=== PATIENT | female | born 1990 | race African-American/Black ===

== ENCOUNTER 2018-01-23 08:19 | Outpatient (CLI) | payer OTHER ==
[2018-01-23] MEDS ORDERED: LACTATED RINGERS 500 ML IV ONE (09:08)
[2018-01-23] MEDS ORDERED: LACTATED RINGERS 1,000 ML IV ONE (09:19)
[2018-01-23] MEDS ORDERED: SODIUM CHLORIDE FLUSH 0.9% 10 ML SYRINGE ONE (09:20)
[2018-01-23 09:21] LABS: BILIRUBIN,URINE NEGATIVE (NEGATIVE); GLUCOSE, URINE (UA) NEGATIVE (NEGATIVE); KETONES,URINE (UA) NEGATIVE (NEGATIVE); LEUKOCYTE ESTERASE, URINE NEGATIVE (NEGATIVE); NITRITE,URINE NEGATIVE (NEGATIVE); OCCULT BLOOD,URINE NEGATIVE (NEGATIVE); PH,URINE 6.5 PH (5.0-7.5); PROTEIN,URINE NEGATIVE (NEGATIVE); UROBILINOGEN,URINE 0.2 (NORMAL) E.U./dL (NORMAL)
[2018-01-23 09:23] LABS: BASOPHILS % (AUTO) 0.4 %; EOSINOPHILS % (AUTO) 0.1 %; HGB - HEMOGLOBIN 10.5 g/dL (12.0-16.0); LYMPHOCYTES # (AUTO) 1.3 10^3/uL (1.5-3.5); LYMPHOCYTES % (AUTO) 14.9 %; MEAN CORPUSCULAR HEMOGLOBIN 30.3 pg (27.0-31.0); MEAN CORPUSCULAR VOLUME 86.4 fL (81.0-99.0); MEAN PLATELET VOLUME 7.7 fL (7.9-10.8); MONOCYTES # (AUTO) 0.5 10^3/uL (0.0-1.0); MONOCYTES % (AUTO) 6.1 %; NEUTROPHILS # (AUTO) 6.6 10^3/uL (1.5-6.6); NEUTROPHILS % (AUTO) 78.5 %; PLT - PLATELET COUNT 277 10^3/uL (130-450); RED BLOOD COUNT 3.48 10^6/uL (4.20-5.40); RED CELL DISTRIBUTION WIDTH 13.3 % (12.0-15.0); WHITE BLOOD COUNT 8.4 x10^3/uL (4.8-10.8)
[2018-01-23 09:28] LABS: CLARITY,URINE CLEAR (CLEAR); RBC,URINE None Seen /HPF (0-5); SQUAMOUS EPITHELIAL CELL,UR MOD Squamous (<= Few)
[2018-01-23 09:29] LABS: BACTERIA,URINE Few /HPF (None Seen)
[2018-01-23 09:35] LABS: CALCIUM 8.5 mg/dL (8.5-10.3); CREATININE 0.6 mg/dL (0.4-1.0)
[2018-01-23 12:27] VITALS: BP 124/70
--- NOTE | 2018-01-23 16:10 | HISTORY & PHYSICAL EXAMINATION ---
DATE OF SERVICE: 01/23/2018 Physician: Odell Gibbs MD PATIENT IDENTIFICATION: Patient is a 27-year-old G1, P0, female whose EDC is 27 April 2018; this makes her 26.6 weeks. She is a patient of [facility]. She has received her OB care from there. CHIEF COMPLAINT: Nausea, vomiting, diarrhea. HISTORY OF PRESENT ILLNESS: Patient states she ate a tuna sandwich got about a third of it down, at which time she felt as though it was a bad sandwich. She developed nausea, vomiting, as well as diarrhea. She has continued to have this up until this morning. She is complaining of feeling poorly, nauseated. She still notes good motion. Her OB course has been unremarkable during this , with the exception of some morning/all day sickness during the early parts of her . She also has some sciatica. PAST MEDICAL HISTORY: Patient denies any hypertensive, diabetic, cardiac, or pulmonary disease. PAST SURGICAL HISTORY: None. ALLERGIES: NONE KNOWN. CURRENT MEDICATIONS: vitamins. HABITS: Patient denies use of alcohol, tobacco, street or addictive drugs. SOCIAL HISTORY: Patient is a dependent to an active duty [employer]. PHYSICAL EXAMINATION HEENT: Pupils are equal and round. Extraocular muscles are intact. Mouth: Mucous membranes are somewhat dry. HEART: Regular rate and rhythm. LUNGS: Lung kasper are clear without rales or wheezes. BACK: No spinal or CVA tenderness. ABDOMEN: Soft non tender with normal Bowel sounds. Uterus is gravid, nontender. She is not developing any contractions. She shows a normal baseline heart rate at this time. LABORATORIES: Electrolytes show a mild hyponatremia at 134, BUN is also low at 5. Her CBC is normal with the exception of a mild anemia of 10.5, hematocrit 31.1, platelets are 277. Her urinalysis is negative for ketones at this time, shows moderate squamous cells, WBCs are 0-3, RBCs are none. ASSESSMENT AND PLAN: A 27-year-old G1, P0 female who is currently 26.6 weeks with food poisoning. This appears to be transient at this time. We will administer IV fluids. I will allow the patient to restart eating. Will also recommend the patient start taking iron. She may follow up in the clinic at [facility] TD: 01/23/2018 10:53 MTDD
== END 2018-01-23 12:10 | disposition home or self-care (01) ==
LOC: WFO 08:19 → FBP 08:21 → WFO 12:10
PROVIDERS: ATTEND Obstetrics & Gynecology
DX: O9A.212 Injury, poisoning and certain other consequences of external causes complicating pregnancy, second trimester (principal); T61.771A Other fish poisoning, accidental (unintentional), initial encounter; R11.2 Nausea with vomiting, unspecified; R19.7 Diarrhea, unspecified; O99.282 Endocrine, nutritional and metabolic diseases complicating pregnancy, second trimester; E87.1 Hypo-osmolality and hyponatremia; O99.012 Anemia complicating pregnancy, second trimester; D64.9 Anemia, unspecified; Z3A.26 26 weeks gestation of pregnancy
CPT/HCPCS: 36415; 80048; 81001; 85025; 99213; J7120; 87086

== ENCOUNTER 2018-02-16 08:00 | Outpatient (CLI) | payer OTHER ==
[2018-02-16 15:10] LABS: MUDS CUTOFF CONCENTRATIONS CUTOFF CONC BELOW:
[2018-02-16 15:31] LABS: AMPHETAMINE SCREEN,URINE NEGATIVE (NEGATIVE); BENZODIAZEPINES SCREEN, URINE NEGATIVE (NEGATIVE); COCAINE SCREEN URINE NEGATIVE (NEGATIVE); METHADONE SCREEN, URINE NEGATIVE (NEGATIVE); METHAMPHETAMINES SCREEN, URINE NEGATIVE (NEGATIVE); OPIATE SCREEN, URINE NEGATIVE (NEGATIVE); OXYCODONE SCREEN, URINE NEGATIVE (NEGATIVE); PROPOXYPHENE SCREEN, URINE NEGATIVE (NEGATIVE); TRICYCLIC ANTIDEPRESSANT,URINE NEGATIVE (NEGATIVE)
== END 2018-02-16 08:01 | disposition home or self-care (01) ==
LOC: LAB.R 08:00
PROVIDERS: ATTEND Obstetrics & Gynecology
DX: Z36.9 Encounter for antenatal screening, unspecified (principal)
CPT/HCPCS: 80306

== ENCOUNTER 2018-03-05 17:20 | Outpatient (CLI) | payer OTHER ==
[2018-03-05 18:30] VITALS: BP 115/72
== END 2018-03-05 18:20 | disposition home or self-care (01) ==
LOC: WFO 17:20 → FBP 17:22 → WFO 18:20
PROVIDERS: ATTEND Obstetrics & Gynecology
DX: O36.8130 Decreased fetal movements, third trimester, not applicable or unspecified (principal); Z3A.32 32 weeks gestation of pregnancy
CPT/HCPCS: 59025

== ENCOUNTER 2018-03-22 16:32 | Outpatient (CLI) | payer OTHER ==
[2018-03-22 17:01] LABS: BASOPHILS % (AUTO) 0.6 %; EOSINOPHILS % (AUTO) 0.1 %; HGB - HEMOGLOBIN 10.9 g/dL (12.0-16.0); LYMPHOCYTES # (AUTO) 1.6 10^3/uL (1.5-3.5); LYMPHOCYTES % (AUTO) 19.7 %; MEAN CORPUSCULAR HEMOGLOBIN 28.4 pg (27.0-31.0); MEAN CORPUSCULAR VOLUME 86.1 fL (81.0-99.0); MEAN PLATELET VOLUME 8.8 fL (7.9-10.8); MONOCYTES # (AUTO) 0.5 10^3/uL (0.0-1.0); MONOCYTES % (AUTO) 6.4 %; NEUTROPHILS % (AUTO) 73.2 %; PLT - PLATELET COUNT 248 10^3/uL (130-450); RED BLOOD COUNT 3.84 10^6/uL (4.20-5.40); RED CELL DISTRIBUTION WIDTH 13.3 % (12.0-15.0); WHITE BLOOD COUNT 8.2 x10^3/uL (4.8-10.8)
[2018-03-22 17:12] LABS: PLATELET ESTIMATE, MANUAL NORMAL (130-450,000) (NORMAL); PLATELET MORPHOLOGY NORMAL APPEARANCE (NORMAL); RBC MORPHOLOGY (MULTIPLE) NORMAL APPEARANCE (NORMAL)
== END 2018-03-22 16:33 | disposition home or self-care (01) ==
LOC: LAB 16:32
PROVIDERS: ATTEND Obstetrics & Gynecology
DX: D50.9 Iron deficiency anemia, unspecified (principal)
CPT/HCPCS: 36415; 85025

== ENCOUNTER 2018-03-29 08:00 | Outpatient (CLI) | payer OTHER | END 2018-03-29 23:59 | disposition home or self-care (01) | LOC: LAB.R 08:00 | PROVIDERS: ATTEND Nurse Practitioner Obstetrics & Gynecology | DX: Z36.85 Encounter for antenatal screening for Streptococcus B (principal) | CPT/HCPCS: 87070 ==

== ENCOUNTER 2018-03-29 15:07 | Outpatient (CLI) | payer OTHER ==
[2018-03-29 17:04] LABS: BASOPHILS % (AUTO) 0.2 %; EOSINOPHILS % (AUTO) 0.2 %; HGB - HEMOGLOBIN 10.8 g/dL (12.0-16.0); LYMPHOCYTES # (AUTO) 1.6 10^3/uL (1.5-3.5); LYMPHOCYTES % (AUTO) 19.8 %; MEAN CORPUSCULAR HEMOGLOBIN 28.1 pg (27.0-31.0); MEAN CORPUSCULAR HGB CONC 32.2 g/dL (32.0-36.0); MEAN PLATELET VOLUME 9.5 fL (7.9-10.8); MONOCYTES # (AUTO) 0.6 10^3/uL (0.0-1.0); MONOCYTES % (AUTO) 7.3 %; NEUTROPHILS # (AUTO) 5.7 10^3/uL (1.5-6.6); NEUTROPHILS % (AUTO) 72.5 %; PLT - PLATELET COUNT 235 10^3/uL (130-450); RED BLOOD COUNT 3.84 10^6/uL (4.20-5.40); RED CELL DISTRIBUTION WIDTH 13.2 % (12.0-15.0); WHITE BLOOD COUNT 7.9 x10^3/uL (4.8-10.8)
== END 2018-03-29 15:08 | disposition home or self-care (01) ==
LOC: LAB 15:07
PROVIDERS: ATTEND Obstetrics & Gynecology
DX: D50.9 Iron deficiency anemia, unspecified (principal); Z36.89 Encounter for other specified antenatal screening
CPT/HCPCS: 36415; 82728; 85025; 86850; 87070

== ENCOUNTER 2018-04-05 08:00 | Outpatient (CLI) | payer OTHER | END 2018-04-05 08:01 | disposition home or self-care (01) | LOC: LAB.R 08:00 | PROVIDERS: ATTEND Nurse Practitioner Obstetrics & Gynecology | DX: Z36.85 Encounter for antenatal screening for Streptococcus B (principal); Z11.3 Encounter for screening for infections with a predominantly sexual mode of transmission | CPT/HCPCS: 87081; 87491; 87591 ==

== ENCOUNTER 2018-04-05 15:11 | Outpatient (CLI) | payer OTHER ==
[2018-04-06 13:36] LABS: HEPATITIS C ANTIBODY NON-REACTIVE (NON-REACTIVE)
[2018-04-06 15:06] LABS: HIV AG/AB 4TH GEN NON-REACTIVE (NON-REACTIVE)
[2018-04-07 10:16] LABS: HSV 1 IGG TYPE SPECIFIC AB <0.90 index; HSV 2 IGG TYPE SPECIFIC AB <0.90 index
== END 2018-04-05 15:12 | disposition home or self-care (01) ==
LOC: LAB 15:11
PROVIDERS: ATTEND Nurse Practitioner Obstetrics & Gynecology
DX: Z36.85 Encounter for antenatal screening for Streptococcus B (principal); Z11.3 Encounter for screening for infections with a predominantly sexual mode of transmission
CPT/HCPCS: 36415; 81599; 86592; 86695; 86696; 86803; 87081; 87389; 87491; 87591

== ENCOUNTER 2018-04-16 10:33 | Outpatient (CLI) | payer OTHER ==
[2018-04-16 10:54] LABS: BILIRUBIN,URINE NEGATIVE (NEGATIVE); GLUCOSE, URINE (UA) NEGATIVE (NEGATIVE); KETONES,URINE (UA) NEGATIVE (NEGATIVE); LEUKOCYTE ESTERASE, URINE NEGATIVE (NEGATIVE); NITRITE,URINE NEGATIVE (NEGATIVE); OCCULT BLOOD,URINE NEGATIVE (NEGATIVE); PH,URINE 6.5 PH (5.0-7.5); PROTEIN,URINE NEGATIVE (NEGATIVE); UROBILINOGEN,URINE 0.2 (NORMAL) E.U./dL (NORMAL)
[2018-04-16 11:04] LABS: CREATININE,URINE 179.5 mg/dL; PROTEIN/CREATININE RATIO,URINE 0.1 (<=0.2)
[2018-04-16 11:05] LABS: ALBUMIN 2.9 g/dL (3.2-5.5); ALBUMIN/GLOBULIN RATIO 0.8 (1.0-2.2); BILIRUBIN,TOTAL 0.4 mg/dL (0.2-1.0); CALCIUM 8.8 mg/dL (8.5-10.3); CREATININE 0.7 mg/dL (0.4-1.0); TOTAL PROTEIN 6.7 g/dL (6.7-8.2); URIC ACID 4.4 mg/dL (2.6-7.2)
[2018-04-16 11:06] LABS: BACTERIA,URINE Few /HPF (None Seen); CLARITY,URINE CLEAR (CLEAR); RBC,URINE None Seen /HPF (0-5); SQUAMOUS EPITHELIAL CELL,UR MOD Squamous (<= Few)
== END 2018-04-16 10:34 | disposition home or self-care (01) ==
LOC: LAB 10:33
PROVIDERS: ATTEND Nurse Practitioner Obstetrics & Gynecology
DX: R03.0 Elevated blood-pressure reading, without diagnosis of hypertension (principal)
CPT/HCPCS: 36415; 80053; 81001; 82570; 83615; 84156; 84550; 87086

== ENCOUNTER 2018-04-16 17:35 | Outpatient (CLI) | payer OTHER ==
[2018-04-16 19:22] VITALS: BP 141/97
== END 2018-04-16 18:50 | disposition home or self-care (01) ==
LOC: WFO 17:35 → FBP 17:37 → WFO 18:50
PROVIDERS: ATTEND Registered Nurse
DX: O13.3 Gestational [pregnancy-induced] hypertension without significant proteinuria, third trimester (principal); Z3A.38 38 weeks gestation of pregnancy
CPT/HCPCS: 36415; 59025; 80053; 81001; 82570; 83615; 84156; 84550; 99212

== ENCOUNTER 2018-04-16 23:09 | Inpatient (IN) | payer OTHER ==
[2018-04-17] MEDS ORDERED: PENICILLIN G POTASSIUM 5,000,000 UNIT in SODIUM CHLORIDE 0.9% MINIBAG 100 ML IV ONE (01:30)
[2018-04-17] MEDS ORDERED: ONDANSETRON 4 MG/2 ML VIAL IVP PRN ×2 (01:30→20:45)
[2018-04-17] MEDS ORDERED: fentaNYL 100 MCG/2 ML VIAL IVP PRN (01:30)
[2018-04-17 02:39] LABS: CREATININE,URINE 183.3 mg/dL; PROTEIN/CREATININE RATIO,URINE 0.2 (<=0.2)
[2018-04-17] MEDS ORDERED: OXYTOCIN/SODIUM CHLORIDE 500 ML IV SCH (03:00)
[2018-04-17 03:20] LABS: BASOPHILS % (AUTO) 0.2 %; EOSINOPHILS % (AUTO) 0.2 %; HGB - HEMOGLOBIN 10.5 g/dL (12.0-16.0); LYMPHOCYTES # (AUTO) 1.8 10^3/uL (1.5-3.5); LYMPHOCYTES % (AUTO) 23.6 %; MEAN CORPUSCULAR HEMOGLOBIN 28.3 pg (27.0-31.0); MEAN CORPUSCULAR HGB CONC 32.7 g/dL (32.0-36.0); MEAN CORPUSCULAR VOLUME 86.5 fL (81.0-99.0); MONOCYTES # (AUTO) 0.6 10^3/uL (0.0-1.0); MONOCYTES % (AUTO) 8.1 %; NEUTROPHILS # (AUTO) 5.1 10^3/uL (1.5-6.6); NEUTROPHILS % (AUTO) 67.9 %; PLT - PLATELET COUNT 187 10^3/uL (130-450); RED BLOOD COUNT 3.73 10^6/uL (4.20-5.40); RED CELL DISTRIBUTION WIDTH 13.8 % (12.0-15.0); WHITE BLOOD COUNT 7.6 x10^3/uL (4.8-10.8)
[2018-04-17 03:28] LABS: URIC ACID 4.4 mg/dL (2.6-7.2)
[2018-04-17] MEDS: SODIUM CHLORIDE FLUSH 0.9% 10 ML SYRINGE IVP PRN ×2 (04:24→17:24)
[2018-04-17] MEDS: miSOPROStol 100 MCG TABLET BC SCH ×3 (05:15→20:18)
--- NOTE | 2018-04-17 10:39 | HISTORY & PHYSICAL EXAMINATION ---
Admit History - Visit Reason Visit Reason: Other (induction of labor for gestational HTN) - : 1 Parity: 0 Premature: 0 Ectopic: 0 : 0 Risk/History: positive: None Complications This : positive: induced HTN Smoking Status: Never smoker - Mother's Labs Mother's Blood Type: positive: O Mother's RH: positive: Positive GBS: positive: Group B Strep Positive Rubella Status: positive: Immune Meds/Allgy - Allergies Allergies/Adverse Reactions: Allergies Allergy/AdvReac Type Severity Reaction Status Date / Time No Known Drug Allergies Allergy Verified 01/23/18 09:08 Review of Systems - Constitutional Constitutional: reports: Fatigue. denies: Fever, Chills - Eyes Eyes: denies: Blurred vision, Spots in vision, Dipolpia - Cardiovascular Cariovascular: denies: Irregular heart rate, Palpitations, Chest pain, Edema - Respiratory Respiratory: denies: Cough, Wheezing, SOB at rest, SOB with exertion - Gastrointestinal Gastrointestinal: denies: Abdominal pain, Constipation, Diarrhea, Nausea, Vomiting, Reflux/heartburn - Genitourinary Genitourinary: denies: Dysuria, Frequency, Urgency - Musculoskeletal Musculoskeletal: denies: Muscle pain, Back pain, Muscle aches - Integumentary Integumentary: denies: Rash, Pruritis, Lesions - Neurological Neurological: denies: General weakness, Focal weakness, Headache - Psychiatric Psychiatric: reports: Anxiety. denies: Depression - All Other Systems All Other Systems: reports: Reviewed and negative Physical - Abdominal Exam Vital Signs: Temp Pulse Resp BP Pulse Ox 37.0 C 86 18 131/80 H 04/16/18 23:27 04/17/18 01:00 04/17/18 01:00 04/17/18 01:00 Contraction Frequency (min/apart): 3-5 minutes Contraction Intensity: positive: Mild Uterine Resting Tone: positive: Soft - Monitoring Heart Rate Baseline: 135 Strip Review: positive: Category I - Presentation Presentation: positive: Vertex - Vaginal Exam Membranes: positive: Membranes intact Dilation (in cm): 1 Effacement (%): 75 Station: positive: 0 Cervical Position: positive: Anterior - Speculum Exam Speculum Exam Performed: positive: No Findings: negative: Gross leak - Other Notes Labor Progress Note/Additional Text: Samantha Quick is a 27 y/o @ 38w4d by early first trimester US who presents for induction of labor for gestational HTN identified this week w/o s/sx PET @ this time. She has been counseled extensively regarding pathophysiology of GHTN & implications as well as induction of labor & modalities & PARQ has been held for misoprostol IOL in the setting of unfavorable cervical status. Informed consent was reviewed & obtained. Her has been otherwise complicated only by her positive GBS screening, some mild anxiety & mild anemia w/ consequent iron supplementation. PMH: unremarkable PSH: tooth extraction 2008, uncomplicated Obhx: primiparous GYNhx: denies hx of STI, normal paps SocHx: to charles, denies DV; good social support; denies etoh/drugs/tobacco Famhx: HTN, diabetes PE: GEN: AAOX3, NAD WA gravid female HEENT: grossly normocephalic, atraumatic, corrective lenses RESP: cta b/l t/o CARDIAC: RRR nls1s2, no murmur ABD: gravid, NT, EFW 8#, lie longitudinal, presentation cephalic : no lesion, sve deferred for now, was /0 @ 0500 OB: EFM bl 135bpm, +accels, no decels, mod pina, TOCO: UCs q3-5 min, palp soft MS: FROM t/o, no edema, no erythema, no deformity NEURO: No focal deficit, +2 DTRs, no clonus SKIN: warm, well-perfused, c/d/i, no lesion PSYCH: Moderate anxiety, otherwise normal mood & affect, pleasantly conversant, accompanied by Charles Plan for Labor - Plan For Labor I expect patient to be DC'd or transferred within 96 hours.: Yes Plan for Labor: 1. Admit to inpatient 2. PET labs q 12 hours 3. BP evaluation minimum q2 hours 4. Misoprostol 50mcg BC q 4 hrs 5. PCN for IPAP per protocol w/ onset of active labor or ROM 6. Reviewed pain management options @ length, ok for NO2, IV opioids, epidural, hydrotherapy per pt request 7. Will initiate antihypertensive therapy for persistent BP elevations, MgSo4 if develops evidence of pre-eclampsia 8. Reassess cervical status only w/ clear clinical indication 9. Reviewed plan of care w/ pt, partner, RN @ bedside & Dr. Odell Correa MD, back-up PATIENT INTAKE REPRESENTATIVE: all in agreement, without concerns.
[2018-04-17 17:15] LABS: HGB - HEMOGLOBIN 11.6 g/dL (12.0-16.0); MEAN CORPUSCULAR HEMOGLOBIN 28.2 pg (27.0-31.0); MEAN CORPUSCULAR HGB CONC 32.9 g/dL (32.0-36.0); MEAN CORPUSCULAR VOLUME 85.6 fL (81.0-99.0); MEAN PLATELET VOLUME 9.7 fL (7.9-10.8); RED BLOOD COUNT 4.11 10^6/uL (4.20-5.40)
[2018-04-17 17:37] LABS: ALT ALANINE AMINOTRANSFERASE 32 IU/L (10-60); AST ASPARTATE AMINOTRANSFERASE 36 IU/L (10-42)
[2018-04-17 17:39] LABS: PROTEIN/CREATININE RATIO,URINE 0.3 (<=0.2)
[2018-04-17] MEDS: LACTATED RINGERS 1,000 ML IV SCH ×2 (19:15→20:57)
[2018-04-17] MEDS: ACETAMINOPHEN 500 MG TABLET PO PRN (19:42)
[2018-04-17] MEDS ORDERED: fent/BUPIV 2 MCG/0.125% 250 ML EP ONE (19:58)
[2018-04-17] MEDS ORDERED: NALOXONE 0.4 MG/ML VIAL IVP PRN (20:45)
[2018-04-17] MEDS ORDERED: METOCLOPRAMIDE 10 MG/2 ML VIAL IVP PRN (20:45)
[2018-04-17] MEDS ORDERED: NALBUPHINE 10 MG/ML AMP IVP PRN (20:45)
[2018-04-17] MEDS ORDERED: diphenhydrAMINE INJ 50 MG/ML VIAL IVP PRN (20:45)
[2018-04-17] MEDS ORDERED: ePHEDrine 50 MG/ML VIAL IVP PRN (20:45)
[2018-04-17] MEDS ORDERED: LACTATED RINGERS 500 ML IV SCH (20:45)
--- NOTE | 2018-04-17 20:50 | ANESTHESIA ---
Pre-Anesthesia VS, & Labs - Diagnosis Active labor - Procedure Continuous labor epidural Vital Signs: Temp Pulse Resp BP Pulse Ox 37.0 C 86 18 131/80 H 04/16/18 23:27 04/17/18 01:00 04/17/18 01:00 04/17/18 01:00 Height 5 ft 4 in Weight (kg) 84.368 kg Body Mass Index 29.9 - NPO Other (has been snacking) - Is Patient ?: Yes - Lab Results Current Lab Results: Laboratory Tests 04/17/18 17:06: AST 36, ALT 32 04/17/18 17:06: WBC 9.0, RBC 4.11 L, Hgb 11.6 L, Hct 35.2 L, MCV 85.6, MCH 28.2, MCHC 32.9, RDW 14.0, Plt Count 201, MPV 9.7 04/17/18 02:48: WBC 7.6, RBC 3.73 L, Hgb 10.5 L, Hct 32.2 L, MCV 86.5, MCH 28.3, MCHC 32.7, RDW 13.8, Plt Count 187, MPV 10.0, Neut # (Auto) 5.1, Lymph # (Auto) 1.8, [place] # (Auto) 0.6, Eos # (Auto) 0.0, Baso # (Auto) 0.0, Absolute Nucleated RBC 0.00, Nucleated RBC % 0.0 04/17/18 02:48: Uric Acid 4.4, AST 29 04/17/18 02:48: Lactate Dehydrogenase 151 Fish Bones: 04/17/18 17:06 Home Medications and Allergies Active Medications Acetaminophen (Tylenol) 1,000 mg PO Q6HR PRN PRN Reason: Pain or Fever > 38C (100.4F) Last Admin: 04/17/18 19:42 Dose: 1,000 mg Diphenhydramine HCl (Benadryl Inj) 12.5 - 25 mg IVP Q6HR PRN PRN Reason: ITCHING Ephedrine Sulfate () 5 mg IVP Q5M PRN PRN Reason: For SBP<100;give until SBP>100 Fentanyl (Fentanyl) 50 mcg IVP Q1H PRN PRN Reason: PAIN Lactated Ringer's (Lr) 1,000 mls @ 100 mls/hr IV .Q10H [facility] Last Admin: 04/17/18 19:15 Dose: 100 mls/hr Oxytocin/Sodium Chloride (Pitocin/Sodium Chloride) 500 mls @ 1 mls/hr IV TITR ONOFRE; Protocol Penicillin G Potassium 2,500, (000 unit/ Sodium Chloride) 100 mls @ 200 mls/hr IV Q4H ONOFRE Lactated Ringer's (Lr) 500 mls @ 999 mls/hr IV ONCE ONE Stop: 04/17/18 21:15 Metoclopramide HCl (Reglan Inj) 10 mg IVP Q6HR PRN PRN Reason: Nausea / Vomiting Misoprostol (Cytotec) 50 mcg BC Q4HR [facility] Last Admin: 04/17/18 20:18 Dose: Not Given Nalbuphine HCl (Nubain) 2.5 - 5 mg IVP Q4H PRN PRN Reason: ITCHING Naloxone HCl (Narcan) 0.1 mg IVP Q2M PRN PRN Reason: RR<8 Ondansetron HCl (Zofran Inj) 4 mg IVP Q4HR PRN PRN Reason: Nausea / Vomiting Ondansetron HCl (Zofran Inj) 4 mg IVP Q6HR PRN PRN Reason: Nausea / Vomiting Sodium Chloride (Normal Saline Flush 0.9%) 10 ml IVP PRN PRN PRN Reason: NEEDED PER PROVIDER ORDERS Last Admin: 04/17/18 17:24 Dose: 10 ml Allergies/Adverse Reactions: Allergies Allergy/AdvReac Type Severity Reaction Status Date / Time No Known Drug Allergies Allergy Verified 01/23/18 09:08 Anes History & Medical History - Anesthetic History Anesthesia Complications: reports: No previous complications Family history of Anesthesia Complications: Denies Family history of Malignant Hyperthermia: Denies - Medical History Cardiovascular: reports: Hypertension (With ) Pulmonary: reports: None Gastrointestinal: reports: None Urinary: reports: None Neuro: reports: None Musculoskeletal: reports: None Endocrine/Autoimmune: reports: None Blood Disorders: reports: None Skin: reports: None Smoking Status: Never smoker Psychosocial: reports: No issues indicated - Surgical History Eyes Ears Nose Throat (EENT): Other (Third molars) - Obstetrical History : 1 Parity: 0 Events: positive: None Complications: positive: induced HTN Exam General: Alert, Oriented x3, Cooperative Dental: WNL Mouth Opening: Greater than 4 Fingerbreadths Neck Mobility: Normal Mallampati classification: II Plan Anesthesia Type: Epidural Consent for Procedure(s) Verified and Reviewed: Yes Code Status: Attempt Resuscitation ASA classification: 2-Mild systemic disease Is this case an emergency?: Yes
--- NOTE | 2018-04-17 22:48 | PROVIDER PROGRESS NOTE ---
Labor Progress Note - Uterine Monitoring Uterine Monitoring Mode: positive: External toco Contraction Frequency (min/apart): 2-3 Contraction Intensity: positive: Moderate Uterine Resting Tone: positive: Soft - Monitoring Monitor Mode: positive: External ultrasound Heart Rate Baseline: 150 Heart Rate Variability: positive: Moderate (6-25 bmp) Accelerations: positive: Present, 15x15 Decelerations: positive: Late (occasional, non-repetitive, to madonna in 100s w/ spontaneous return to baseline <30 seconds), Variable (occasional yo nsfit in 100s w/ spontaneous return to baseline <60 seconds) Strip Review: positive: Category II (without evidence of acidemia) - Vaginal Exam Dilation (in cm): 4 Effacement (%): 70 Station: 0 Cervical Position: Anterior - Labor Progress Note Labor Progress Note/Additional Text: S: Samantha is comfortable w/ her epidural in place. Charles is at the bedside & is involved & supportive. O: AAOx3, NAD WA gravid female VSS: BPs decreased immediately s/p epidural placement, now back to 130s/80s, maternal HR 100-120 EFM: BL 150bpm, +accels, variable & late decelerations, occasional & non- repetitive, to madonna in 100s w/ spontaneous return to baseline <60 seconds TOCO: UCs q2-3 minutes SVE: /0 AROM for bloody amniotic fluid, IUPC placed, baseline 0mmHg, peak 10mmHg, contractions now evident q 2-4 minutes, MVU < 100, FSE placed w/o incident, position ROP A: 27 y/o @ 38w4d by first trimester US, induction of labor for non-severe pre-eclampsia Pre-eclampsia by BP critera, proteinuria LFTs/CBC stable favorable cervical status s/p 2 doses buccal misoprostol FHTs cat II, w/o evidence of acidemia Adequtate pain control w/ epidural anesthesia No severe-range blood pressures GBS Pos, AROM for bloody amniotic fluid malposition P: 1. Begin Pitocin infusion & titrate per MVU to adequate labor pattern by IUPC 2. Begin PCN for IPAP per protocol 3. Continue q 12 hour PET labs & careful BP monitoring w/ initiation of antihypertensive therapy & magnesium sulfate for severe-range BPs 4. Reassess cervical status 2 hours s/p establishment of adequate labor pattern by IUPC, earlier PRN 5. Reviewed plan of care w/ pt, partner, RN @ bedside, & Dr. Odell Correa MD, back-up DRY MILL WORKER; all in agreement, without concerns.
--- NOTE | 2018-04-17 23:04 | PROVIDER PROGRESS NOTE ---
Labor Progress Note - Uterine Monitoring Uterine Monitoring Mode: positive: External toco Contraction Frequency (min/apart): 2-3 Contraction Intensity: positive: Mild to moderate Uterine Resting Tone: positive: Soft - Monitoring Monitor Mode: positive: External ultrasound Heart Rate Baseline: 140 Heart Rate Variability: positive: Moderate (6-25 bmp) Accelerations: positive: Present, 15x15 Decelerations: positive: None Strip Review: positive: Category I - Vaginal Exam Dilation (in cm): deferred - Labor Progress Note Labor Progress Note/Additional Text: S: Samantha is using N2O & hydrotherapy w/ good effect for pain management; declines IV analgesia or anesthesia @ this time O: AAOx3, NAD WA gravid female VSS BPs 130s-80s EFM: BL 135bpm, + accels, no decels, mod pina TOCO: UCs q2-3 min, moderate SVE deferred secondary to no indication A: 27 y/o @ 38w4d, induction of labor for gestational hypertension, no s/sx severe PET Cervical ripening w/ misoprostol 50mcg buccally x2 doses IBOW, GBS pos, no active labor FHTs cat I Adequate pain control w/o analgesia/anesthesia P: 1. Continue buccal misoprostol q 4 hours 2. Initiate IPAP w/ IV PCN per protocol w/ ROM or active labor 3. Analgesia/anesthesia PRN per pt request 4. PET labs @ 1700
--- NOTE | 2018-04-17 23:12 | PROVIDER PROGRESS NOTE ---
Labor Progress Note - Uterine Monitoring Uterine Monitoring Mode: positive: External toco Contraction Frequency (min/apart): 2-3 Contraction Intensity: positive: Mild to moderate Uterine Resting Tone: positive: Soft - Monitoring Monitor Mode: positive: External ultrasound Heart Rate Baseline: 140 Heart Rate Variability: positive: Moderate (6-25 bmp) Accelerations: positive: Present, 15x15 Decelerations: positive: None Strip Review: positive: Category I - Vaginal Exam Dilation (in cm): deferred - Labor Progress Note Labor Progress Note/Additional Text: S: Samantha is coping well w/ use of hydrotherapy, states contractions are more intense & uncomfortable O: AAOx3, NAD WA gravid female VSS: BPs 130s/90s EFM: BL 140bpm, +accels, no decels, mod pina Medulla: UCs q 2-3 min SVE: deferred secondary to no indication A: 27 y/o @ 38w4d by first trimester US, misoprostol IOL for GHTN No s/sx severe PET No severe range BPs FHTs cat I s/p 2 doses misoprostol w/ regular uterine contractions & subjective increase in intensity Adequate pain control w/o analgesia/anesthesia GBS Pos w/ IBOW, no active labor P: 1. Continue buccal misoprostol w/ decrease in contraction activity 2. Reassess cervical status w/ clear clinical indication 3. IPAP w/ IV PCN w/ ROM or active labor 4. Analgesia/anesthesia PRN per pt request
[2018-04-17] MEDS ORDERED: CITRIC ACID/SODIUM CITRATE 15 ML UDC PO ONE (23:18)
[2018-04-17] MEDS ORDERED: ceFAZolin 3 GM in SODIUM CHLORIDE 0.9% 100ML 100 ML IV ONE (23:19)
--- NOTE | 2018-04-17 23:20 | PROVIDER PROGRESS NOTE ---
Labor Progress Note - Uterine Monitoring Uterine Monitoring Mode: positive: IUPC Contraction Frequency (min/apart): q 3-6 min Contraction Intensity: positive: Moderate Uterine Resting Tone: positive: Soft - Monitoring Monitor Mode: positive: Spiral electrode Heart Rate Baseline: 160 Heart Rate Variability: positive: Moderate (6-25 bmp) Accelerations: positive: Absent Decelerations: positive: Late, Recurrent (>50% x20 min) Strip Review: positive: Category II - Vaginal Exam Dilation (in cm): 4 Effacement (%): 70 Station: 0 Cervical Position: Anterior - Labor Progress Note Labor Progress Note/Additional Text: S: Samantha is comfortable w/ her epidural in place O: AAOx3, NAD WA gravid female VSS: BPs 130s/80s EFM by FSE: BL 160bpm, no accels, + recurrent late decelerations to madonna in 140s w/ spont return to baseline <60 seconds, occasional variable decelerations to madonna in 90s w/ spontaneous return to baseline <60 seconds, mod variability IUPC: BL 0mmHg, peak 15mmHg, occurring q 3-6 minutes x60 seconds, MVU <100 SVE: unchanged, ongoing leakage of copious bloody amniotic fluid A: 27 y/o @ 38w4d, misoprostol induction of labor for pre-eclampsia, no evidence of severe pre-eclampsia Normal LFTs/CBC, TP/CR 0.3 s/p 2 doses buccal misoprostol, last @ 0900, favorable cervical status @ present, inadequate contraction pattern GBS positive, AROM for bloody amniotic fluid @ 2230, for a total ruptured duration of 45 minutes, afebrile, GBS pos, PCN loading dose infusing FHTs cat II, concerning for repetitive late decelerations w/o accelerations Adequate pain control w/ epidural anesthesia Bloody amniotic fluid P: 1. Requested Dr. Odell Correa MD, evaluate patient given status & poor labor progress, will require augmentation to effect delivery & pt remains remote from delivery 2. Anticipate primary LTCS; hold Pitocin augmentation
[2018-04-17] MEDS ORDERED: TERBUTALINE 1 MG/ML VIAL SUBQ ONE (23:23)
[2018-04-17] MEDS ORDERED: LACTATED RINGERS 1,000 ML IV ONE (23:43)
[2018-04-17] MEDS ORDERED: OXYTOCIN 10 UNIT/ML VIAL IV ONE (23:55)
[2018-04-17] MEDS ORDERED: LIDOCAINE-MPF 2% 5 ML VIAL IM ONE (23:55)
[2018-04-17] MEDS ORDERED: ONDANSETRON 4 MG/2 ML VIAL IVP ONE (23:55)
[2018-04-17] MEDS ORDERED: MIDAZOLAM 2 MG/2 ML VIAL IVP ONE (23:55)
[2018-04-17] MEDS ORDERED: KETOROLAC 30 MG/ML VIAL IVP ONE (23:55)
[2018-04-17] MEDS ORDERED: MORPHINE PF 5 MG/10 ML AMP EP ONE (23:55)
[2018-04-17] MEDS ORDERED: ePHEDrine 50 MG/ML VIAL IVP ONE (23:55)
[2018-04-17] MEDS ORDERED: SODIUM CHLORIDE 0.9% 10 ML VIAL IV ONE (23:55)
--- NOTE | 2018-04-18 00:41 | OPERATIVE REPORT ---
Operative Report - General Admit Date: 04/17/18 Planned Procedure: Primary section Pre-Op Diagnosis: Suspected abruption; category 3 EFM tracing changes; GHTN Procedure Performed: Primary lower segment transverse section; urgent Post Op Diagnosis: Placental abruption 15-20% of placenta; Grade 3; same as above - Procedure Note Primary Surgeon: Odell Correa MD, FACOG, FICS Secondary Surgeon: Bo Mcdowell, certified nurse unemployment examiner, advanced nurse practitioner Anesthesia Provider: Martio Araujo; certified nurse furniture mechanic Anesthesia Technique: Epidural Pathology: Cord blood and cord gases sent IV Fluids (mL): 900 Estimated Blood Loss (mL): 450 Urine Output (mL): 120 Drain/Tube Type: Other (Almaraz catheter) Complications: None - Other Other Information/Narrative: TECHNIQUE Mrs. Quick is a 27-year-old -Turkish primigravida at 38 weeks who is being induced for gestational hypertension and was suspected to have a abruption in evolution. Bo Doe CNM asked me to review EFM tracing due to series of variable decelerations some possibly late. Patient had an IUPC with scalp lead. Baseline was 160, minimal variability, multiple variable decelerations with a notable prolonged variable deceleration that lasted for 2 minutes down to the 90s. I performs scalp stimulation and the fetus did not respond. Uterus had increased tone and tenderness. IUPC had fresh blood within the catheter and significant bloody discharge per vagina. Patient was complaining of pain despite epidural. Based on physical exam and tracing changes a partial abruption was suspected. Cervix was only dilated to 4 cm and delivery was remote. section was recommended. At 2312 hrs. decision for urgent was made and the boathouse keeper alerted who began calling in crew anesthesia impedes. Patient was given 36 cc of Bicitra, SCD boots were placed, Almaraz was already in place as well as epidural. We had an informed consent consent session patient signed. Patient was brought to the OR expeditiously. Patient's epidural was dosed with lidocaine. Patient was placed on the OR table in the supine position. She was prepped and draped in a customary sterile fashion. Brief timeout session was done. Anesthesia was confirmed through the level of T10. The abdomen was uneventfully opened with a Pfannenstiel incision. position was assessed by palpation. A curvilinear hysterotomy was carved with scalpel. The amniotic fluid was clear on entry. Hysterotomy wound was expanded with gentle finger traction. Caustic Preparer secured head with his right hand and guided it through the hysterotomy incision. With the aid of fundal pressure from the assistant pastry chef, atraumatic delivery of the head was accomplished and shoulder shortly thereafter. Cord was doubly clamped transected. Cord blood and cord gases were sent. Elementary Substitute Teacher handed to the over to the awaiting pediatrics team. Uterus was exteriorized and inspected. There were no myometrial or intracavitary defects. The hysterotomy was closed in 2 layers; first a interlocking layer of 0 Vicryl followed by a imbricating layer of 0 Vicryl in a cardinal stitch. We chose not to close the bladder flap and the myometrium was hemostatically secure. The abdomen was lavaged with warm normal saline. The uterus was placed back in the abdomen atraumatically. All operative sites were inspected to ensure hemostatic security. The peritoneum was closed with a running stitch of 2-0 Vicryl. A single tacking stitch of 2-0 Vicryl brought the rectus muscles together in the midline. Fascia was closed with a running stitch of 0 Vicryl. Subcutaneous space closure was done with interrupted stitches of 2-0 chromic. Skin was closed with 4-0 Monocryl with a subcuticular stitch. Wound VAC was then uneventfully placed. Due to the rapidity of the execution of surgery opening count was not completed. Flat plate of the abdomen and pelvis showed no needle sponges or instruments left behind. Patient was somewhat anxious Versed was used to calm her. She left the OR in stable condition. Intraoperative medications: Ancef 2 g IV piggyback, Toradol 30 mg, and Versed. FINDINGS 1. Living male weighing 6 pounds 5 ounces and scoring Apgars of 7/9. Arterial cord pH 7.173, base excess -4.2. Venous cord pH 7.203, base excess - 7.5. Clear fluid. 2. Placenta delivered intact with three-vessel cord. Cord entanglement was noted: Nuchal cord x1 & Bandolier cord. Placenta was found to have blood clot over 15-20% of the fundal surface area, consistent with abruption 3. Tubes and ovaries were completely normal in appearance with decidual reaction on tubes. There was some evidence of adhesive disease in the lower quadrant but no evidence of active PID was found. Myometrium was normal with no evidence of septum or fibroids.
--- NOTE | 2018-04-18 00:56 | XRAY Report ---
Reason: NO INST COUNT DONE Procedure Date: 04/18/2018 Accession Number: [id number] / [id number] Procedure: XR - Abdomen 1 View X-Ray CPT Code: 41862 FULL RESULT: EXAM: ABDOMEN RADIOGRAPHY EXAM DATE: 04/18/2018 12:42 AM. CLINICAL HISTORY: No instrument count done. COMPARISON: None. TECHNIQUE: 1 view. FINDINGS: Bowel Gas Pattern: Enlarged uterus pushing bowel loops superiorly. Multiple gas distended small bowel loops are seen. Nonobstructive nonspecific bowel gas pattern. Spinal catheter is seen. No retained surgical instruments or sponges are seen. IMPRESSION: No retained surgical instruments or sponges are seen. See above. These findings were reported to Nurse Chauhan on 04/18/2018 at 12:55 AM. [facility]
[2018-04-18] MEDS ORDERED: diphenhydrAMINE 25 MG CAPSULE PO PRN (01:00)
[2018-04-18] MEDS ORDERED: LACTATED RINGERS 1,000 ML IV SCH (01:00)
[2018-04-18] MEDS ORDERED: SODIUM CHLORIDE FLUSH 0.9% 10 ML SYRINGE IVP PRN (01:00)
[2018-04-18] MEDS ORDERED: LACTATED RINGERS 1,000 ML IV ONE (01:15)
[2018-04-18] MEDS: miSOPROStol 100 MCG TABLET BC SCH ×2 (01:58→02:02)
[2018-04-18] MEDS: PENICILLIN G POTASSIUM 2,500,000 UNIT in SODIUM CHLORIDE 0.9% 100ML 100 ML IV SCH ×5 (02:00→03:04)
[2018-04-18] MEDS: SODIUM CHLORIDE FLUSH 0.9% 10 ML SYRINGE IVP SCH (02:04)
[2018-04-18] MEDS: OXYTOCIN/SODIUM CHLORIDE 500 ML IV SCH (02:06)
[2018-04-18] MEDS: ACETAMINOPHEN 500 MG TABLET PO PRN ×4 (03:30→22:45)
[2018-04-18] MEDS: oxyCODONE 5 MG TABLET PO PRN ×5 (03:30→21:16)
[2018-04-18 08:08] LABS: BILIRUBIN,URINE NEGATIVE (NEGATIVE); GLUCOSE, URINE (UA) NEGATIVE (NEGATIVE); KETONES,URINE (UA) NEGATIVE (NEGATIVE); LEUKOCYTE ESTERASE, URINE TRACE (NEGATIVE); NITRITE,URINE NEGATIVE (NEGATIVE); OCCULT BLOOD,URINE LARGE (NEGATIVE); PH,URINE 6.5 PH (5.0-7.5); PROTEIN,URINE NEGATIVE (NEGATIVE); UROBILINOGEN,URINE 1 (NORMAL) E.U./dL (NORMAL)
[2018-04-18 08:09] LABS: CLARITY,URINE CLOUDY (CLEAR)
[2018-04-18 08:10] LABS: BACTERIA,URINE Rare /HPF (None Seen); RBC,URINE TNTC /HPF (0-5); SQUAMOUS EPITHELIAL CELL,UR RARE Squamous (<= Few)
[2018-04-18 08:36] LABS: CREATININE,URINE 97.6 mg/dL; PROTEIN/CREATININE RATIO,URINE 0.2 (<=0.2)
[2018-04-18] MEDS: CALCIUM CARBONATE CHEW 500 MG TABLET PO SCH ×2 (09:45→21:16)
[2018-04-18] MEDS: SIMETHICONE CHEW 80 MG TABLET PO SCH ×3 (09:46→19:26)
--- NOTE | 2018-04-18 10:12 | PROVIDER PROGRESS NOTE ---
Subjective - General Admit Date: 04/17/18 Procedure Date: 04/17/18 Post Op Days: 1 Procedure Performed: Emergent primary section - Review of Systems Wound/Incisions: positive: Other (Wound VAC functional) Drain Type: Almaraz catheter Drain Output Description: Clear General: positive: No symptoms HEENT: positive: No symptoms Pulmonary: positive: No symptoms Cardiovascular: positive: No symptoms Gastrointestinal: positive: No symptoms, Flatus Genitourinary: positive: Other (Mild lochia) Musculoskeletal: positive: No symptoms Skin: positive: No symptoms Psychiatric: positive: No symptoms All Other Systems: positive: Reviewed and negative Objective - Patient Data Vital Signs: Vital Signs x48h Temp Pulse Resp BP Pulse Ox 04/18/18 08:00 98.2 F 84 16 100 04/18/18 03:00 98.4 F 80 18 137/85 H 04/18/18 02:45 69 18 154/82 H 04/18/18 02:30 75 16 141/82 H 04/18/18 02:15 94 18 126/88 H Weight: Weight 04/16/18 04/17/18 04/18/18 23:59 23:59 23:59 Weight (kg) 84.368 kg 84.368 kg Intake & Output: Intake and Output Totals x24h 04/16/18 04/17/18 04/18/18 23:59 23:59 23:59 Intake Total 1770 600 Output Total 150 850 Balance 1620 -250 - Lab Results Lab Results: 04/17/18 17:06 Other Lab Results: Lab Results x24hrs 04/18/18 04/18/18 04/17/18 Range/Units 07:25 07:25 17:06 WBC (4.8-10.8) x10^3/uL RBC (4.20-5.40) 10^6/uL Hgb (12.0-16.0) g/dL Hct (37.0-47.0) % MCV (81.0-99.0) fL MCH (27.0-31.0) pg MCHC (32.0-36.0) g/dL RDW (12.0-15.0) % Plt Count (130-450) 10^3/uL MPV (7.9-10.8) fL AST 36 (10-42) IU/L ALT 32 (10-60) IU/L Urine Color YELLOW Urine Clarity CLOUDY (CLEAR) Urine pH 6.5 (5.0-7.5) PH Ur Specific Angie 1.015 (1.002-1.030) Urine Protein NEGATIVE (NEGATIVE) mg/dL Urine Glucose (UA) NEGATIVE (NEGATIVE) mg/dL Urine Ketones NEGATIVE (NEGATIVE) mg/dL Urine Occult Blood LARGE H (NEGATIVE) Urine Nitrite NEGATIVE (NEGATIVE) Urine Bilirubin NEGATIVE (NEGATIVE) Urine Urobilinogen 1 (NORMAL) (NORMAL) E.U./dL Ur Leukocyte Esterase TRACE H (NEGATIVE) Urine RBC TNTC H (0-5) /HPF Urine WBC >25 H (0-5) /HPF Ur Squamous Epith Cells RARE Squamous (<= Few) Urine Bacteria Rare (None Seen) /HPF Ur Microscopic Review INDICATED Urine Creatinine 97.6 mg/dL Ur Total Protein Timed 18 mg/dL Protein/Creatinin Ratio 0.2 (<=0.2) Blood Type Antibody Screen 04/17/18 04/17/18 04/16/18 Range/Units 17:06 16:40 02:48 WBC 9.0 (4.8-10.8) x10^3/uL RBC 4.11 L (4.20-5.40) 10^6/uL Hgb 11.6 L (12.0-16.0) g/dL Hct 35.2 L (37.0-47.0) % MCV 85.6 (81.0-99.0) fL MCH 28.2 (27.0-31.0) pg MCHC 32.9 (32.0-36.0) g/dL RDW 14.0 (12.0-15.0) % Plt Count 201 (130-450) 10^3/uL MPV 9.7 (7.9-10.8) fL AST (10-42) IU/L ALT (10-60) IU/L Urine Color Urine Clarity (CLEAR) Urine pH (5.0-7.5) PH Ur Specific [place]ie (1.002-1.030) Urine Protein (NEGATIVE) mg/dL Urine Glucose (UA) (NEGATIVE) mg/dL Urine Ketones (NEGATIVE) mg/dL Urine Occult Blood (NEGATIVE) Urine Nitrite (NEGATIVE) Urine Bilirubin (NEGATIVE) Urine Urobilinogen (NORMAL) E.U./dL Ur Leukocyte Esterase (NEGATIVE) Urine RBC (0-5) /HPF Urine WBC (0-5) /HPF Ur Squamous Epith Cells (<= Few) Urine Bacteria (None Seen) /HPF Ur Microscopic Review Urine Creatinine 46.0 mg/dL Ur Total Protein Timed 16 mg/dL Protein/Creatinin Ratio 0.3 H (<=0.2) Blood Type O POSITIVE Antibody Screen NEGATIVE - Current Medications Current Medications: Current Medications Generic Name Dose Route Start Last Admin Trade Name Freq PRN Reason Stop Dose Admin Acetaminophen 1,000 mg 04/17/18 18:20 04/18/18 09:46 Tylenol PO 1,000 mg Q6HR PRN Administration Pain or Fever > 38C (100.4F) Calcium Carbonate/Glycine 500 mg 04/18/18 09:00 04/18/18 09:45 Tums PO 500 mg BID ONOFRE Administration Fentanyl 50 mcg 04/17/18 01:30 04/18/18 01:26 Fentanyl IVP 50 mcg Q1H PRN Administration PAIN Lactated Ringer's 1,000 mls @ 100 mls/hr 04/17/18 02:00 04/17/18 20:57 Lr IV 100 mls/hr .Q10H ONOFRE Administration Penicillin G Potassium 2,500, 100 mls @ 200 mls/hr 04/17/18 06:00 04/18/18 03:04 000 unit/ Sodium Chloride IV Not Given Q4H ONOFRE Oxytocin/Sodium Chloride 500 mls @ 1 mls/hr 04/17/18 23:00 04/18/18 02:06 Pitocin/Sodium Chloride IV Not Given TITR [facility] Protocol 1 MILLIUNIT/MIN Misoprostol 50 mcg 04/17/18 05:00 04/18/18 02:02 Cytotec BC Not Given Q4HR ONOFRE Oxycodone HCl 5 mg 04/18/18 01:00 04/18/18 07:59 Roxicodone PO 5 mg Q4HR PRN Administration PAIN Simethicone 80 mg 04/18/18 06:00 04/18/18 09:46 Mylicon PO 80 mg TID ONOFRE Administration Sodium Chloride 10 ml 04/17/18 01:30 04/17/18 17:24 Normal Saline Flush 0.9% IVP 10 ml PRN PRN Administration NEEDED PER PROVIDER ORDERS Sodium Chloride 10 ml 04/18/18 01:00 04/18/18 02:04 Normal Saline Flush 0.9% IVP Not Given 0100,0900,1700 ONOFRE Physical Exam - Physical Exam General: positive: No acute distress, Alert HEENT: positive: Moist mucous membranes Neck: positive: Supple w/out meningeal sx Cardiac: positive: Regular Rate, Regular Rhythm Resipratory: positive: Clear to ausultation rashmi Abdomen: positive: Normal Bowel sounds, Other (No inappropriate tenderness) Female : positive: Enlarged uterus (17-16-week size firm nontender) Extremities: positive: Normal ROM, No pedal edema Skin: positive: Warm and dry Neurologic: positive: Alert and Oriented X 3, Normal motor/no weakness, Normal Sensation, Normal Speech Assessment/Plan - Assessment/Plan Assessment: Patient doing well after urgent last night at midnight. Will DC Almaraz soon and increase activity. No evidence of ongoing bleeding. Vital signs stable. Plan: * Continue supportive care and monitor for complications secondary to gestational hypertension. * Await morning labs
[2018-04-18] MEDS: IBUPROFEN 600 MG TABLET PO SCH ×2 (11:57→19:26)
[2018-04-18] MEDS: LABETALOL 100 MG TABLET PO SCH ×2 (11:58→21:16)
[2018-04-18 12:01] LABS: BASOPHILS % (AUTO) 0.4 %; EOSINOPHILS % (AUTO) 0.2 %; HGB - HEMOGLOBIN 8.9 g/dL (12.0-16.0); LYMPHOCYTES # (AUTO) 1.3 10^3/uL (1.5-3.5); LYMPHOCYTES % (AUTO) 16.7 %; MEAN CORPUSCULAR HEMOGLOBIN 28.8 pg (27.0-31.0); MEAN CORPUSCULAR VOLUME 84.7 fL (81.0-99.0); MEAN PLATELET VOLUME 9.6 fL (7.9-10.8); MONOCYTES # (AUTO) 0.5 10^3/uL (0.0-1.0); NEUTROPHILS # (AUTO) 6.1 10^3/uL (1.5-6.6); NEUTROPHILS % (AUTO) 76.7 %; PLT - PLATELET COUNT 156 10^3/uL (130-450); RED BLOOD COUNT 3.09 10^6/uL (4.20-5.40); RED CELL DISTRIBUTION WIDTH 13.7 % (12.0-15.0)
[2018-04-18 12:13] LABS: ALBUMIN 2.3 g/dL (3.2-5.5); ALBUMIN/GLOBULIN RATIO 0.8 (1.0-2.2); BILIRUBIN,TOTAL 0.5 mg/dL (0.2-1.0); CALCIUM 7.8 mg/dL (8.5-10.3); CREATININE 0.7 mg/dL (0.4-1.0); TOTAL PROTEIN 5.2 g/dL (6.7-8.2)
[2018-04-19] MEDS: PENICILLIN G POTASSIUM 2,500,000 UNIT in SODIUM CHLORIDE 0.9% 100ML 100 ML IV SCH ×4 (00:53→00:57)
[2018-04-19] MEDS: miSOPROStol 100 MCG TABLET BC SCH ×4 (00:53→00:57)
[2018-04-19] MEDS: SODIUM CHLORIDE FLUSH 0.9% 10 ML SYRINGE IVP SCH ×3 (00:53→01:26)
[2018-04-19] MEDS: OXYTOCIN/SODIUM CHLORIDE 500 ML IV SCH (00:54)
[2018-04-19] MEDS: LACTATED RINGERS 1,000 ML IV SCH ×3 (00:55→05:39)
[2018-04-19] MEDS: IBUPROFEN 600 MG TABLET PO SCH ×3 (01:26→19:06)
[2018-04-19] MEDS: oxyCODONE 5 MG TABLET PO PRN ×2 (05:38→21:51)
[2018-04-19] MEDS: ACETAMINOPHEN 500 MG TABLET PO PRN (05:39)
[2018-04-19 06:54] LABS: BASOPHILS % (AUTO) 0.4 %; EOSINOPHILS % (AUTO) 0.3 %; HGB - HEMOGLOBIN 8.6 g/dL (12.0-16.0); LYMPHOCYTES # (AUTO) 1.6 10^3/uL (1.5-3.5); LYMPHOCYTES % (AUTO) 16.3 %; MEAN CORPUSCULAR HEMOGLOBIN 28.6 pg (27.0-31.0); MEAN CORPUSCULAR HGB CONC 32.6 g/dL (32.0-36.0); MEAN CORPUSCULAR VOLUME 87.6 fL (81.0-99.0); MEAN PLATELET VOLUME 9.5 fL (7.9-10.8); MONOCYTES # (AUTO) 0.6 10^3/uL (0.0-1.0); MONOCYTES % (AUTO) 6.2 %; NEUTROPHILS # (AUTO) 7.8 10^3/uL (1.5-6.6); NEUTROPHILS % (AUTO) 76.8 %; PLT - PLATELET COUNT 179 10^3/uL (130-450); RED BLOOD COUNT 3.01 10^6/uL (4.20-5.40); RED CELL DISTRIBUTION WIDTH 14.1 % (12.0-15.0); WHITE BLOOD COUNT 10.1 x10^3/uL (4.8-10.8)
--- NOTE | 2018-04-19 06:57 | PROVIDER PROGRESS NOTE ---
Subjective - General Admit Date: 04/17/18 Procedure Date: 04/17/18 Post Op Days: 2 Procedure Performed: Emergent primary section - Review of Systems Wound/Incisions: positive: Healing well (Wound VAC functional), Other (Wound VAC functional) General: positive: No symptoms HEENT: positive: No symptoms Pulmonary: positive: No symptoms Cardiovascular: positive: No symptoms Gastrointestinal: positive: No symptoms, Flatus Genitourinary: positive: Other (Mild lochia) Musculoskeletal: positive: No symptoms Skin: positive: No symptoms Psychiatric: positive: No symptoms All Other Systems: positive: Reviewed and negative Objective - Patient Data Vital Signs: Vital Signs x48h Temp Pulse Resp BP Pulse Ox 04/19/18 05:45 98.2 F 84 16 120/72 99 04/19/18 00:48 98.8 F 72 16 124/83 H 100 Weight: Weight 04/17/18 04/18/18 04/19/18 23:59 23:59 23:59 Weight (kg) 84.368 kg Intake & Output: Intake and Output Totals x24h 04/17/18 04/18/18 04/19/18 23:59 23:59 23:59 Intake Total 1770 2000 Output Total 150 2050 200 Balance 1620 -50 -200 - Lab Results Lab Results: 04/18/18 11:44 04/18/18 11:44 Other Lab Results: Lab Results x24hrs 04/18/18 04/18/18 04/18/18 Range/Units 11:44 11:44 07:25 WBC 8.0 (4.8-10.8) x10^3/uL RBC 3.09 L (4.20-5.40) 10^6/uL Hgb 8.9 L (12.0-16.0) g/dL Hct 26.1 L (37.0-47.0) % MCV 84.7 (81.0-99.0) fL MCH 28.8 (27.0-31.0) pg MCHC 34.0 (32.0-36.0) g/dL RDW 13.7 (12.0-15.0) % Plt Count 156 (130-450) 10^3/uL MPV 9.6 (7.9-10.8) fL Neut # (Auto) 6.1 (1.5-6.6) 10^3/uL Lymph # (Auto) 1.3 L (1.5-3.5) 10^3/uL [place] # (Auto) 0.5 (0.0-1.0) 10^3/uL Eos # (Auto) 0.0 (0.0-0.7) 10^3/uL Baso # (Auto) 0.0 (0.0-0.1) 10^3/uL Absolute Nucleated RBC 0.00 x10^3/uL Nucleated RBC % 0.0 /100WBC Sodium 132 L (135-145) mmol/L Potassium 3.4 L (3.5-5.0) mmol/L Chloride 101 (101-111) mmol/L Carbon Dioxide 25 (21-32) mmol/L Anion Gap 6.0 (6-13) BUN 6 (6-20) mg/dL Creatinine 0.7 (0.4-1.0) mg/dL Estimated GFR (MDRD) 121 (>89) Glucose 99 (70-100) mg/dL Calcium 7.8 L (8.5-10.3) mg/dL Total Bilirubin 0.5 (0.2-1.0) mg/dL AST 32 (10-42) IU/L ALT 26 (10-60) IU/L Alkaline Phosphatase 137 H (42-121) IU/L Total Protein 5.2 L (6.7-8.2) g/dL Albumin 2.3 L (3.2-5.5) g/dL Globulin 2.9 (2.1-4.2) g/dL Albumin/Globulin Ratio 0.8 L (1.0-2.2) Urine Color Urine Clarity (CLEAR) Urine pH (5.0-7.5) PH Ur Specific [place] (1.002-1.030) Urine Protein (NEGATIVE) mg/dL Urine Glucose (UA) (NEGATIVE) mg/dL Urine Ketones (NEGATIVE) mg/dL Urine Occult Blood (NEGATIVE) Urine Nitrite (NEGATIVE) Urine Bilirubin (NEGATIVE) Urine Urobilinogen (NORMAL) E.U./dL Ur Leukocyte Esterase (NEGATIVE) Urine RBC (0-5) /HPF Urine WBC (0-5) /HPF Ur Squamous Epith Cells (<= Few) Urine Bacteria (None Seen) /HPF Ur Microscopic Review Urine Creatinine 97.6 mg/dL Ur Total Protein Timed 18 mg/dL Protein/Creatinin Ratio 0.2 (<=0.2) 04/18/18 Range/Units 07:25 WBC (4.8-10.8) x10^3/uL RBC (4.20-5.40) 10^6/uL Hgb (12.0-16.0) g/dL Hct (37.0-47.0) % MCV (81.0-99.0) fL MCH (27.0-31.0) pg MCHC (32.0-36.0) g/dL RDW (12.0-15.0) % Plt Count (130-450) 10^3/uL MPV (7.9-10.8) fL Neut # (Auto) (1.5-6.6) 10^3/uL Lymph # (Auto) (1.5-3.5) 10^3/uL [place] # (Auto) (0.0-1.0) 10^3/uL Eos # (Auto) (0.0-0.7) 10^3/uL Baso # (Auto) (0.0-0.1) 10^3/uL Absolute Nucleated RBC x10^3/uL Nucleated RBC % /100WBC Sodium (135-145) mmol/L Potassium (3.5-5.0) mmol/L Chloride (101-111) mmol/L Carbon Dioxide (21-32) mmol/L Anion Gap (6-13) BUN (6-20) mg/dL Creatinine (0.4-1.0) mg/dL Estimated GFR (MDRD) (>89) Glucose (70-100) mg/dL Calcium (8.5-10.3) mg/dL Total Bilirubin (0.2-1.0) mg/dL AST (10-42) IU/L ALT (10-60) IU/L Alkaline Phosphatase (42-121) IU/L Total Protein (6.7-8.2) g/dL Albumin (3.2-5.5) g/dL Globulin (2.1-4.2) g/dL Albumin/Globulin Ratio (1.0-2.2) Urine Color YELLOW Urine Clarity CLOUDY (CLEAR) Urine pH 6.5 (5.0-7.5) PH Ur Specific [place] 1.015 (1.002-1.030) Urine Protein NEGATIVE (NEGATIVE) mg/dL Urine Glucose (UA) NEGATIVE (NEGATIVE) mg/dL Urine Ketones NEGATIVE (NEGATIVE) mg/dL Urine Occult Blood LARGE H (NEGATIVE) Urine Nitrite NEGATIVE (NEGATIVE) Urine Bilirubin NEGATIVE (NEGATIVE) Urine Urobilinogen 1 (NORMAL) (NORMAL) E.U./dL Ur Leukocyte Esterase TRACE H (NEGATIVE) Urine RBC TNTC H (0-5) /HPF Urine WBC >25 H (0-5) /HPF Ur Squamous Epith Cells RARE Squamous (<= Few) Urine Bacteria Rare (None Seen) /HPF Ur Microscopic Review INDICATED Urine Creatinine mg/dL Ur Total Protein Timed mg/dL Protein/Creatinin Ratio (<=0.2) - Current Medications Current Medications: Current Medications Generic Name Dose Route Start Last Admin Trade Name Freq PRN Reason Stop Dose Admin Acetaminophen 1,000 mg 04/17/18 18:20 04/19/18 05:39 Tylenol PO 1,000 mg Q6HR PRN Administration Pain or Fever > 38C (100.4F) Calcium Carbonate/Glycine 500 mg 04/18/18 09:00 04/18/18 21:16 Tums PO 500 mg BID ONOFRE Administration Fentanyl 50 mcg 04/17/18 01:30 04/18/18 01:26 Fentanyl IVP 50 mcg Q1H PRN Administration PAIN Lactated Ringer's 1,000 mls @ 100 mls/hr 04/17/18 02:00 04/19/18 05:39 Lr IV Not Given .Q10H ONOFRE Penicillin G Potassium 2,500, 100 mls @ 200 mls/hr 04/17/18 06:00 04/19/18 00:57 000 unit/ Sodium Chloride IV Not Given Q4H ONOFRE Oxytocin/Sodium Chloride 500 mls @ 1 mls/hr 04/17/18 23:00 04/19/18 00:54 Pitocin/Sodium Chloride IV Not Given TITR [facility] Protocol 1 MILLIUNIT/MIN Ibuprofen 600 mg 04/18/18 12:00 04/19/18 01:26 Motrin PO 600 mg Q6HR ONOFRE Administration Labetalol HCl 100 mg 04/18/18 12:00 04/18/18 21:16 Trandate PO 100 mg BID ONOFRE Administration Misoprostol 50 mcg 04/17/18 05:00 04/19/18 00:57 Cytotec BC Not Given Q4HR ONOFRE Oxycodone HCl 5 mg 04/18/18 01:00 04/19/18 05:38 Roxicodone PO 5 mg Q4HR PRN Administration PAIN Simethicone 80 mg 04/18/18 06:00 04/18/18 19:26 Mylicon PO 80 mg TID ONOFRE Administration Sodium Chloride 10 ml 04/17/18 01:30 04/17/18 17:24 Normal Saline Flush 0.9% IVP 10 ml PRN PRN Administration NEEDED PER PROVIDER ORDERS Sodium Chloride 10 ml 04/18/18 01:00 04/19/18 01:26 Normal Saline Flush 0.9% IVP Not Given 0100,0900,1700 [facility] Physical Exam - Physical Exam General: positive: No acute distress, Alert, Other (Breast-feeding without difficulty) HEENT: positive: Moist mucous membranes, Dentition normal Neck: positive: Supple w/out meningeal sx, Thyroid normal Cardiac: positive: Regular Rate, Regular Rhythm Resipratory: positive: Clear to ausultation rashmi Abdomen: positive: Normal Bowel sounds, Other (No evidence of hematoma or herniation or wound changes. Wound VAC in place) Female : positive: Enlarged uterus (16-week uterus firm nontender), Other (Gardenia-pad minimal non-fall discharge; mild to minimal lochia reported by nursing and patient) Extremities: positive: Normal ROM, Non tender, Other (Mild ankle edema and f pool edema) Skin: positive: Warm and dry Neurologic: positive: Alert and Oriented X 3, Normal motor/no weakness, Normal Sensation, Normal Speech Assessment/Plan - Assessment/Plan Assessment: Patient recovering as expected from the emergency section as well as gestational hypertension. She requires at least 1 more day of supportive care. In discussion, she feels that she is not quite ready for self-care and infant care functions Plan: Continue supportive care and nursing education.
--- NOTE | 2018-04-19 07:07 | PROVIDER PROGRESS NOTE ---
Subjective - Prog Note Date Prog Note Date: 04/18/18 Prog Note Time: 10:30 - Subjective Subjective: Addendum / revision to operative report. Preoperative diagnosis includes category 3 heart tracing which should be revised to category 2 heart tracing. At the time of surgery tracing fit category 2 specifications and appeared to be degenerating to category 3. Abruption which was the suspected diagnosis and later confirmed at surgery if not promptly responded to can degenerate into a maternal and catastrophe. Therefore stat was called. Objective - Vital Signs/Intake & Output Vital Signs: Vital Signs x48h Temp Pulse Resp BP Pulse Ox 04/19/18 05:45 98.2 F 84 16 120/72 99 04/19/18 00:48 98.8 F 72 16 124/83 H 100 Intake & Output: Intake & Output 04/16/18 04/17/18 04/18/18 04/19/18 23:59 23:59 23:59 23:59 Intake Total 1770 2000 Output Total 150 2050 200 Balance 1620 -50 -200 - Lab Results Fish Bones: 04/18/18 11:44 04/18/18 11:44 Other Labs: Lab Results x24hrs 04/18/18 04/18/18 04/18/18 Range/Units 11:44 11:44 07:25 WBC 8.0 (4.8-10.8) x10^3/uL RBC 3.09 L (4.20-5.40) 10^6/uL Hgb 8.9 L (12.0-16.0) g/dL Hct 26.1 L (37.0-47.0) % MCV 84.7 (81.0-99.0) fL MCH 28.8 (27.0-31.0) pg MCHC 34.0 (32.0-36.0) g/dL RDW 13.7 (12.0-15.0) % Plt Count 156 (130-450) 10^3/uL MPV 9.6 (7.9-10.8) fL Neut # (Auto) 6.1 (1.5-6.6) 10^3/uL Lymph # (Auto) 1.3 L (1.5-3.5) 10^3/uL [place] # (Auto) 0.5 (0.0-1.0) 10^3/uL Eos # (Auto) 0.0 (0.0-0.7) 10^3/uL Baso # (Auto) 0.0 (0.0-0.1) 10^3/uL Absolute Nucleated RBC 0.00 x10^3/uL Nucleated RBC % 0.0 /100WBC Sodium 132 L (135-145) mmol/L Potassium 3.4 L (3.5-5.0) mmol/L Chloride 101 (101-111) mmol/L Carbon Dioxide 25 (21-32) mmol/L Anion Gap 6.0 (6-13) BUN 6 (6-20) mg/dL Creatinine 0.7 (0.4-1.0) mg/dL Estimated GFR (MDRD) 121 (>89) Glucose 99 (70-100) mg/dL Calcium 7.8 L (8.5-10.3) mg/dL Total Bilirubin 0.5 (0.2-1.0) mg/dL AST 32 (10-42) IU/L ALT 26 (10-60) IU/L Alkaline Phosphatase 137 H (42-121) IU/L Total Protein 5.2 L (6.7-8.2) g/dL Albumin 2.3 L (3.2-5.5) g/dL Globulin 2.9 (2.1-4.2) g/dL Albumin/Globulin Ratio 0.8 L (1.0-2.2) Urine Color Urine Clarity (CLEAR) Urine pH (5.0-7.5) PH Ur Specific [place] (1.002-1.030) Urine Protein (NEGATIVE) mg/dL Urine Glucose (UA) (NEGATIVE) mg/dL Urine Ketones (NEGATIVE) mg/dL Urine Occult Blood (NEGATIVE) Urine Nitrite (NEGATIVE) Urine Bilirubin (NEGATIVE) Urine Urobilinogen (NORMAL) E.U./dL Ur Leukocyte Esterase (NEGATIVE) Urine RBC (0-5) /HPF Urine WBC (0-5) /HPF Ur Squamous Epith Cells (<= Few) Urine Bacteria (None Seen) /HPF Ur Microscopic Review Urine Creatinine 97.6 mg/dL Ur Total Protein Timed 18 mg/dL Protein/Creatinin Ratio 0.2 (<=0.2) 12/23/18 Range/Units 07:25 WBC (4.8-10.8) x10^3/uL RBC (4.20-5.40) 10^6/uL Hgb (12.0-16.0) g/dL Hct (37.0-47.0) % MCV (81.0-99.0) fL MCH (27.0-31.0) pg MCHC (32.0-36.0) g/dL RDW (12.0-15.0) % Plt Count (130-450) 10^3/uL MPV (7.9-10.8) fL Neut # (Auto) (1.5-6.6) 10^3/uL Lymph # (Auto) (1.5-3.5) 10^3/uL [place] # (Auto) (0.0-1.0) 10^3/uL Eos # (Auto) (0.0-0.7) 10^3/uL Baso # (Auto) (0.0-0.1) 10^3/uL Absolute Nucleated RBC x10^3/uL Nucleated RBC % /100WBC Sodium (135-145) mmol/L Potassium (3.5-5.0) mmol/L Chloride (101-111) mmol/L Carbon Dioxide (21-32) mmol/L Anion Gap (6-13) BUN (6-20) mg/dL Creatinine (0.4-1.0) mg/dL Estimated GFR (MDRD) (>89) Glucose (70-100) mg/dL Calcium (8.5-10.3) mg/dL Total Bilirubin (0.2-1.0) mg/dL AST (10-42) IU/L ALT (10-60) IU/L Alkaline Phosphatase (42-121) IU/L Total Protein (6.7-8.2) g/dL Albumin (3.2-5.5) g/dL Globulin (2.1-4.2) g/dL Albumin/Globulin Ratio (1.0-2.2) Urine Color YELLOW Urine Clarity CLOUDY (CLEAR) Urine pH 6.5 (5.0-7.5) PH Ur Specific [place] 1.015 (1.002-1.030) Urine Protein NEGATIVE (NEGATIVE) mg/dL Urine Glucose (UA) NEGATIVE (NEGATIVE) mg/dL Urine Ketones NEGATIVE (NEGATIVE) mg/dL Urine Occult Blood LARGE H (NEGATIVE) Urine Nitrite NEGATIVE (NEGATIVE) Urine Bilirubin NEGATIVE (NEGATIVE) Urine Urobilinogen 1 (NORMAL) (NORMAL) E.U./dL Ur Leukocyte Esterase TRACE H (NEGATIVE) Urine RBC TNTC H (0-5) /HPF Urine WBC >25 H (0-5) /HPF Ur Squamous Epith Cells RARE Squamous (<= Few) Urine Bacteria Rare (None Seen) /HPF Ur Microscopic Review INDICATED Urine Creatinine mg/dL Ur Total Protein Timed mg/dL Protein/Creatinin Ratio (<=0.2)
[2018-04-19] MEDS: SIMETHICONE CHEW 80 MG TABLET PO SCH ×2 (08:43→21:20)
[2018-04-19] MEDS: LABETALOL 100 MG TABLET PO SCH ×2 (10:06→21:20)
[2018-04-19] MEDS: CALCIUM CARBONATE CHEW 500 MG TABLET PO SCH (10:06)
--- NOTE | 2018-04-19 11:05 | DISCHARGE SUMMARY ---
Physician: Odell Correa MD DATE OF ADMISSION: 04/17/2018 DATE OF DISCHARGE: 04/19/2018 ADMISSION DIAGNOSES 1. Gestational hypertension, mild. 2. 38 weeks 4 days gestation. 3. Category 2 heart tracing degenerating towards category 3. 4. Partial abruption (15-20%). 5. Postoperative temperature elevation 6. Postoperative anxiety PROCEDURE: Primary lower segment transverse section to yield a living male (Correa). COMPLICATIONS: Postoperative temperature elevation. CONSULTANTS: Dr. Guzman, internal medicine hospitalist HISTORY: The patient is a 27-year-old primigravida at 38 weeks and 4 days gestation, confirmed by a first trimester ultrasound, who on two occasions had blood pressure over 140/90. She had no headaches, visual changes or right upper quadrant tenderness. HOSPITAL COURSE: She was admitted for misoprostol ripening and induction by Dwight Doe CNM. She was known to be GBS positive, and therefore penicillin was started per protocol.. Initial heart tracing was 135 with accelerations, no decelerations, and q. 5-minute minimal contractions. LABORATORY DATA: Initial preeclamptic labs revealed a mild anemia with a hemoglobin of 11.6. Platelets were 179. Electrolytes showed a mild hypokalemia at 3.4 and mild hyponatremia at 132. Creatinine was 0.7. Urine for protein/creatinine ratio was elevated at a 0.3. Labor course The patient continued misoprostol, and patient had an uneventful epidural placed. By 2300 hours, patient's heart tracing became category 2 with late recurrent decelerations and baseline shifting to 160. I was called into consultation and concurred with that assessment, and found symptoms suggestive of abruption in evolution. The cervix was dilated to 4 cm, and hopes of vaginal delivery were remote. I recommended urgent section at that time. Had an informed consent discussion with the patient. She was prepared for emergent section. Emergency section Emergent was done under epidural anesthetic. A living male infant was born, weighing 6 pounds 5 ounces, and scored Apgars 7 and 9. Arterial cord pH was 7.173 with a base excess of -4.2. Venous cord pH was 7.203, with a base excess of -7.5. Placenta was inspected and adherent clot indicating abruption was found over 15-20% of the surface area. Total blood loss was 450. The patient went to the recovery room in good condition. Reference typewritten operative report. Postop day 1 The patient did well postoperatively, though her blood pressure was somewhat labile, but peaking to 154/82. Initial postop hemoglobin was 11.6, and protein/creatinine ratio normalized to 0.2. Postop day 2 The patient had recovered better function and was without difficulty. Her hemoglobin equilibrated to 8.9. This was expected given the hemoconcentration effects of GHTN. She began nursing well. She still was fatigued, and not quite care capable of self and care. In the afternoon of postoperative day 2 patient experienced a temperature spike to 97.8 and continued to complain of anxiety. She was evaluated by Dr. yates which found her hemoglobin stable at 8.6 but noted mild uterine tenderness. Consultation with internal medicine was called reference Dr. Guzman's notes. EKG was normal with sinus rhythm and no ST elevations. CT scan of the chest ruled out pulmonary embolism. Troponins were negative. Patient was started on Unasyn presumptively. Patient's temperature defervesced, her pulse remained normal but her blood pressures were labile on labetalol 100 twice daily. Therefore labetalol was increased to 200 twice daily. Postop day 3 / Discharge On the morning of 04/20 patient was once again reevaluated. There was no evidence of active infection and she was he was hemodynamically stable. Patient remained afebrile overnight; Unasyn was discontinued in favor of cephalexin 500 every 6 hours. Arrangements were made for cephalexin to take home pack from emergency room. She desired discharge and was prepared accordingly. The patient was discharged on 04/19/2018. Her blood pressure was stabilized with labetalol. She was capable self-care and infant care. Discharge instructions were given including warning and callback instructions. DISCHARGE MEDICATIONS 1. Motrin 600 every 6 hours. 2. Oxycodone 5 mg 1 tab every 4 hours p.r.n. breakthrough pain. 3. Labetalol 200 mg b.i.d. 4. Colace 250 b.i.d. 5. Cephalexin 500 mg twice daily Followup will be in one week to discontinue wound VAC,Wound check and blood pressure check. Copy to [facility] obstetrics clinic. Copy to [facility] women's clinic TD: 04/19/2018 07:39 Final copy 04/20/2018 0950 MTDD
[2018-04-19] MEDS ORDERED: IOVERSOL 320 100 ML VIAL IVP ONE ×2 (16:29→18:31)
[2018-04-19] MEDS ORDERED: MAG HYDROX/AL HYDROX/SIMETH 30 ML UDC PO ONE (16:37)
[2018-04-19 16:48] LABS: ALBUMIN 2.5 g/dL (3.2-5.5); ALBUMIN/GLOBULIN RATIO 0.8 (1.0-2.2); BILIRUBIN,TOTAL 0.2 mg/dL (0.2-1.0); CALCIUM 8.5 mg/dL (8.5-10.3); CREATININE 0.7 mg/dL (0.4-1.0); TOTAL PROTEIN 5.6 g/dL (6.7-8.2)
[2018-04-19 16:48] LABS: BASOPHILS % (AUTO) 0.3 %; EOSINOPHILS % (AUTO) 0.2 %; HGB - HEMOGLOBIN 8.8 g/dL (12.0-16.0); LYMPHOCYTES # (AUTO) 1.3 10^3/uL (1.5-3.5); LYMPHOCYTES % (AUTO) 12.8 %; MEAN CORPUSCULAR HGB CONC 32.3 g/dL (32.0-36.0); MEAN CORPUSCULAR VOLUME 86.6 fL (81.0-99.0); MEAN PLATELET VOLUME 8.5 fL (7.9-10.8); MONOCYTES # (AUTO) 0.6 10^3/uL (0.0-1.0); MONOCYTES % (AUTO) 5.8 %; NEUTROPHILS # (AUTO) 8.1 10^3/uL (1.5-6.6); NEUTROPHILS % (AUTO) 80.9 %; PLT - PLATELET COUNT 212 10^3/uL (130-450); RED BLOOD COUNT 3.16 10^6/uL (4.20-5.40); RED CELL DISTRIBUTION WIDTH 14.2 % (12.0-15.0); WHITE BLOOD COUNT 10.1 x10^3/uL (4.8-10.8)
--- NOTE | 2018-04-19 16:50 | CONSULTATION NOTE ---
Referring Provider Name of Referring Provider:: Odell Gibbs MD Consult Date: 04/19/18 Chief Complaint - Chief Complaint Chief Complaint: Chest pain History of Present Illness - History of Present Illness HPI Comment/Other: Patients is a very pleasant 27-year-old -Lithuanian female with a past medical history significant for gestational hypertension and anemia who is postoperative day 2 after a successful . The patient was hospitalized on 04/16/2018 for induction of labor. Unfortunately with induction there was decompensation and patient ended up having a . Since the patient has been doing well aside from some mild pain around the surgical site. She states that today after feeding her baby she began to develop substernal chest pain. She had associated shortness of breath with talking. She denies any palpitations, fevers, chills. She denies any lower extremity swelling. She does state that she had some gas prior to the feeling of chest pain. She also states that she feels anxious. She has never had chest pain like this before. The chest pain is nonradiating about 5 out of 10 and sharp. It started about 10 minutes prior to me arriving at the scene. The patient states that it is persistent. The patient also states that she is having some mid back/right flank discomfort which also started just before she began feeling the chest pain. Patient denies any headaches, blurred vision, runny nose, sore throat, nasal congestion, difficulty swallowing, changes in her appetite, nausea, vomiting, diarrhea, constipation, joint pain, joint swelling, muscle aches, neck stiffness, urinary urgency, urinary frequency, hematuria, polyuria, polydipsia, skin changes, skin rash, night sweats or any focal neurologic deficits History - Past Medical History Cardiovascular: reports: Hypertension (With ) Respiratory: reports: None Neuro: reports: None Endocrine/Autoimmune: reports: None GI: reports: None : reports: None Musculoskeletal: reports: None Derm: reports: None - Past Surgical History /[employer]: reports: section HEENT: reports: Other (Third molars) - Family & Social History Family History: Mother: Asthma, Hypertension, Father: Hypertension, Other family: Cancer (Great grandmother had breast cancer) Living arrangement: At home Living Situation: With spouse/s.o. Social History Notes: Patient is . She has never smoked cigarettes. She used to drink wine occasionally before the . She denies any illicit drug use. The patient lives in [place] with her who is in the [place]. - POLST Patient has POLST: No POLST Status: Full Code Meds/Allgy - Allergies Allergies/Adverse Reactions: Allergies Allergy/AdvReac Type Severity Reaction Status Date / Time No Known Drug Allergies Allergy Verified 01/23/18 09:08 Review of Systems - Other Findings Other Findings: A comprehensive review of systems was performed the pertinent positives and negatives are stated above in the HPI and the remainder of the review of systems is negative. Exam - Vital Signs Reviewed Vital Signs: Yes Vital Signs: Vital Signs x48h Temp Pulse Resp BP Pulse Ox 04/19/18 16:21 37.4 C 04/19/18 16:08 152/91 H 04/19/18 15:51 85 18 142/90 H 100 04/19/18 13:45 36.8 C 85 16 132/89 H 99 - Physical Exam General Appearance: positive: No acute distress, Alert, Anxious Eyes Bilateral: positive: Normal inspection, PERRL, EOMI, No lid inflammation, Conjunctivae nml, No scleral icterus ENT: positive: ENT inspection nml, Pharynx nml, No signs of dehydration. negative: Purulent nasal drainage, Pharyngeal erythema, Oral lesions Neck: positive: Nml inspection, Thyroid nml, No JVD, Trachea midline. negative: Thyromegaly, Lymphadenopathy (R), Lymphadenopathy (L), Carotid bruit, Tracheal deviation Respiratory: positive: Chest non-tender, No respiratory distress, Breath sounds nml. negative: Wheezes, Rales, Rhonchi Cardiovascular: positive: Regular rate & rhythm, No murmur, No gallop Peripheral Pulses: positive: 2+ Abdomen: positive: Non-tender, No organomegaly, Nml bowel sounds, No distention. negative: Guarding, Rebound, Hepatomegaly Back: positive: Nml inspection. negative: CVA tenderness (R), CVA tenderness (L) Skin: positive: Color nml, No rash, Warm, Dry. negative: Cyanosis, Diaphoresis, Pallor Extremities: positive: Non-tender, Full ROM, Nml appearance, No pedal edema Neurologic/Psychiatric: positive: Oriented x3, CN's nml (2-12), Motor nml, Sensation nml, Mood/affect nml Conclusion/Plan - Diagnosis Diagnosis: 1. Chest pain. 2. Right flank pain - Plan Plan: 1. Given patient was just and had recent surgery she is not risk for possible pulmonary embolism. Patient is very low risk for acute coronary syndrome. Patient had an EKG which is negative. Recommend CT angiography of the thorax to rule out pulmonary embolism Recommend GI cocktail Recommend troponin We will continue to monitor closely if patient does have a pulmonary embolism we would recommend transfer to higher level of care for decision-making about anticoagulation. 2. Patient's mid back/flank pain is likely musculoskeletal. We do recommend a urine analysis to ensure she is not having a kidney stone or pyelonephritis. - Lab Results Lab results reviewed: Yes Fish Bones: 04/19/18 06:40 04/18/18 11:44 Other Lab Results: Laboratory Results WBC 10.1 x10^3/uL (4.8-10.8) 04/19/18 06:40 RBC 3.01 10^6/uL (4.20-5.40) L 04/19/18 06:40 Hgb 8.6 g/dL (12.0-16.0) L 04/19/18 06:40 Hct 26.3 % (37.0-47.0) L 04/19/18 06:40 MCV 87.6 fL (81.0-99.0) 04/19/18 06:40 MCH 28.6 pg (27.0-31.0) 04/19/18 06:40 MCHC 32.6 g/dL (32.0-36.0) 04/19/18 06:40 RDW 14.1 % (12.0-15.0) 04/19/18 06:40 Plt Count 179 10^3/uL (130-450) 04/19/18 06:40 MPV 9.5 fL (7.9-10.8) 04/19/18 06:40 Neut # (Auto) 7.8 10^3/uL (1.5-6.6) H 04/19/18 06:40 Lymph # (Auto) 1.6 10^3/uL (1.5-3.5) 04/19/18 06:40 [place] # (Auto) 0.6 10^3/uL (0.0-1.0) 04/19/18 06:40 Eos # (Auto) 0.0 10^3/uL (0.0-0.7) 04/19/18 06:40 Baso # (Auto) 0.0 10^3/uL (0.0-0.1) 04/19/18 06:40 Absolute Nucleated RBC 0.00 x10^3/uL 04/19/18 06:40 Nucleated RBC % 0.0 /100WBC 04/19/18 06:40 Sodium 133 mmol/L (135-145) L 04/19/18 16:10 Potassium 4.1 mmol/L (3.5-5.0) 04/19/18 16:10 Chloride 102 mmol/L (101-111) 04/19/18 16:10 Carbon Dioxide 26 mmol/L (21-32) 04/19/18 16:10 Anion Gap 5.0 (6-13) L 04/19/18 16:10 BUN 8 mg/dL (6-20) 04/19/18 16:10 Creatinine 0.7 mg/dL (0.4-1.0) 04/19/18 16:10 Estimated GFR (MDRD) 121 (>89) 04/19/18 16:10 Glucose 96 mg/dL (70-100) 04/19/18 16:10 Uric Acid 4.4 mg/dL (2.6-7.2) 04/17/18 02:48 Calcium 8.5 mg/dL (8.5-10.3) 04/19/18 16:10 Total Bilirubin 0.2 mg/dL (0.2-1.0) 04/19/18 16:10 AST 29 IU/L (10-42) 04/19/18 16:10 ALT 24 IU/L (10-60) 04/19/18 16:10 Alkaline Phosphatase 124 IU/L (42-121) H 04/19/18 16:10 Lactate Dehydrogenase 151 IU/L (91-225) 04/17/18 02:48 Troponin I < 0.04 ng/mL (<0.49) 04/19/18 16:10 Total Protein 5.6 g/dL (6.7-8.2) L 04/19/18 16:10 Albumin 2.5 g/dL (3.2-5.5) L 04/19/18 16:10 Globulin 3.1 g/dL (2.1-4.2) 04/19/18 16:10 Albumin/Globulin Ratio 0.8 (1.0-2.2) L 04/19/18 16:10 Urine Color YELLOW 04/18/18 07:25 Urine Clarity CLOUDY (CLEAR) 04/18/18 07:25 Urine pH 6.5 PH (5.0-7.5) 04/18/18 07:25 Ur Specific [place] 1.015 (1.002-1.030) 04/18/18 07:25 Urine Protein NEGATIVE mg/dL (NEGATIVE) 04/18/18 07:25 Urine Glucose (UA) NEGATIVE mg/dL (NEGATIVE) 04/18/18 07:25 Urine Ketones NEGATIVE mg/dL (NEGATIVE) 04/18/18 07:25 Urine Occult Blood LARGE (NEGATIVE) H 04/18/18 07:25 Urine Nitrite NEGATIVE (NEGATIVE) 04/18/18 07:25 Urine Bilirubin NEGATIVE (NEGATIVE) 04/18/18 07:25 Urine Urobilinogen 1 (NORMAL) E.U./dL (NORMAL) 04/18/18 07:25 Ur Leukocyte Esterase TRACE (NEGATIVE) H 04/18/18 07:25 Urine RBC TNTC /HPF (0-5) H 04/18/18 07:25 Urine WBC >25 /HPF (0-5) H 04/18/18 07:25 Ur Squamous Epith Cells RARE Squamous (<= Few) 04/18/18 07:25 Urine Bacteria Rare /HPF (None Seen) 04/18/18 07:25 Ur Microscopic Review INDICATED 04/18/18 07:25 Urine Creatinine 97.6 mg/dL 04/18/18 07:25 Ur Total Protein Timed 18 mg/dL 04/18/18 07:25 Protein/Creatinin Ratio 0.2 (<=0.2) 04/18/18 07:25 Blood Type O POSITIVE 04/16/18 02:48 Antibody Screen NEGATIVE 04/16/18 02:48 - EKG Results EKG Interpreted Independently: Yes EKG Findings: Normal sinus rhythm no ST elevations or ischemic changes noted.
[2018-04-19 17:19] LABS: BILIRUBIN,URINE NEGATIVE (NEGATIVE); GLUCOSE, URINE (UA) NEGATIVE (NEGATIVE); KETONES,URINE (UA) NEGATIVE (NEGATIVE); LEUKOCYTE ESTERASE, URINE NEGATIVE (NEGATIVE); NITRITE,URINE NEGATIVE (NEGATIVE); OCCULT BLOOD,URINE NEGATIVE (NEGATIVE); PROTEIN,URINE NEGATIVE (NEGATIVE); UROBILINOGEN,URINE 0.2 (NORMAL) E.U./dL (NORMAL)
[2018-04-19 17:22] LABS: CLARITY,URINE CLEAR (CLEAR)
[2018-04-19 17:30] LABS: BACTERIA,URINE None Seen /HPF (None Seen); RBC,URINE 0-5 /HPF (0-5); SQUAMOUS EPITHELIAL CELL,UR FEW Squamous (<= Few)
--- NOTE | 2018-04-19 18:05 | PROVIDER PROGRESS NOTE ---
Subjective - Prog Note Date Prog Note Date: 04/19/18 Prog Note Time: 18:02 - Subjective Subjective: Pt developed sudden onset substernal pain 07/04 at 1553 this pm. Denies dyspnea. She is 1 day S/P PLTC/S done for abruption. Objective - Vital Signs/Intake & Output Reviewed Vital Signs: Yes Vital Signs: Vital Signs x48h Temp Pulse Resp BP Pulse Ox 04/19/18 17:45 37.8 C H 89 149/92 H 04/19/18 16:21 37.4 C 04/19/18 16:08 152/91 H 04/19/18 15:51 85 18 142/90 H 100 04/19/18 13:45 36.8 C 85 16 132/89 H 99 Intake & Output: Intake & Output 04/16/18 04/17/18 04/18/18 04/19/18 23:59 23:59 23:59 23:59 Intake Total 1770 2000 Output Total 150 2050 200 Balance 1620 -50 -200 - Objective General Appearance: positive: No acute distress, Alert (Pt is anxious about possible DVT/PE) Respiratory: positive: Chest non-tender, No respiratory distress, Breath sounds nml Cardiovascular: positive: Regular rate & rhythm, No murmur Abdomen: positive: Tenderness (at uterus) Extremities: positive: Non-tender (no femeral tenderness.). negative: Calf tenderness, Sarah's sign/cords - Lab Results Fish Bones: 04/19/18 16:40 04/19/18 16:10 Other Labs: Lab Results x24hrs 04/19/18 04/19/18 04/19/18 Range/Units 16:50 16:40 16:10 WBC 10.1 (4.8-10.8) x10^3/uL RBC 3.16 L (4.20-5.40) 10^6/uL Hgb 8.8 L (12.0-16.0) g/dL Hct 27.4 L (37.0-47.0) % MCV 86.6 (81.0-99.0) fL MCH 28.0 (27.0-31.0) pg MCHC 32.3 (32.0-36.0) g/dL RDW 14.2 (12.0-15.0) % Plt Count 212 (130-450) 10^3/uL MPV 8.5 (7.9-10.8) fL Neut # (Auto) 8.1 H (1.5-6.6) 10^3/uL Lymph # (Auto) 1.3 L (1.5-3.5) 10^3/uL [place] # (Auto) 0.6 (0.0-1.0) 10^3/uL Eos # (Auto) 0.0 (0.0-0.7) 10^3/uL Baso # (Auto) 0.0 (0.0-0.1) 10^3/uL Absolute Nucleated RBC 0.00 x10^3/uL Nucleated RBC % 0.0 /100WBC Sodium 133 L (135-145) mmol/L Potassium 4.1 (3.5-5.0) mmol/L Chloride 102 (101-111) mmol/L Carbon Dioxide 26 (21-32) mmol/L Anion Gap 5.0 L (6-13) BUN 8 (6-20) mg/dL Creatinine 0.7 (0.4-1.0) mg/dL Estimated GFR (MDRD) 121 (>89) Glucose 96 (70-100) mg/dL Calcium 8.5 (8.5-10.3) mg/dL Total Bilirubin 0.2 (0.2-1.0) mg/dL AST 29 (10-42) IU/L ALT 24 (10-60) IU/L Alkaline Phosphatase 124 H (42-121) IU/L Troponin I (<0.49) ng/mL Total Protein 5.6 L (6.7-8.2) g/dL Albumin 2.5 L (3.2-5.5) g/dL Globulin 3.1 (2.1-4.2) g/dL Albumin/Globulin Ratio 0.8 L (1.0-2.2) Urine Color YELLOW Urine Clarity CLEAR (CLEAR) Urine pH 6.0 (5.0-7.5) PH Ur Specific [place] <=1.005 (1.002-1.030) Urine Protein NEGATIVE (NEGATIVE) mg/dL Urine Glucose (UA) NEGATIVE (NEGATIVE) mg/dL Urine Ketones NEGATIVE (NEGATIVE) mg/dL Urine Occult Blood NEGATIVE (NEGATIVE) Urine Nitrite NEGATIVE (NEGATIVE) Urine Bilirubin NEGATIVE (NEGATIVE) Urine Urobilinogen 0.2 (NORMAL) (NORMAL) E.U./dL Ur Leukocyte Esterase NEGATIVE (NEGATIVE) Urine RBC 0-5 (0-5) /HPF Urine WBC 0-3 (0-5) /HPF Ur Squamous Epith Cells FEW Squamous (<= Few) Urine Bacteria None Seen (None Seen) /HPF Urine Culture Comments NOT INDICATED 04/19/18 04/19/18 Range/Units 16:10 06:40 WBC 10.1 (4.8-10.8) x10^3/uL RBC 3.01 L (4.20-5.40) 10^6/uL Hgb 8.6 L (12.0-16.0) g/dL Hct 26.3 L (37.0-47.0) % MCV 87.6 (81.0-99.0) fL MCH 28.6 (27.0-31.0) pg MCHC 32.6 (32.0-36.0) g/dL RDW 14.1 (12.0-15.0) % Plt Count 179 (130-450) 10^3/uL MPV 9.5 (7.9-10.8) fL Neut # (Auto) 7.8 H (1.5-6.6) 10^3/uL Lymph # (Auto) 1.6 (1.5-3.5) 10^3/uL [place] # (Auto) 0.6 (0.0-1.0) 10^3/uL Eos # (Auto) 0.0 (0.0-0.7) 10^3/uL Baso # (Auto) 0.0 (0.0-0.1) 10^3/uL Absolute Nucleated RBC 0.00 x10^3/uL Nucleated RBC % 0.0 /100WBC Sodium (135-145) mmol/L Potassium (3.5-5.0) mmol/L Chloride (101-111) mmol/L Carbon Dioxide (21-32) mmol/L Anion Gap (6-13) BUN (6-20) mg/dL Creatinine (0.4-1.0) mg/dL Estimated GFR (MDRD) (>89) Glucose (70-100) mg/dL Calcium (8.5-10.3) mg/dL Total Bilirubin (0.2-1.0) mg/dL AST (10-42) IU/L ALT (10-60) IU/L Alkaline Phosphatase (42-121) IU/L Troponin I < 0.04 (<0.49) ng/mL Total Protein (6.7-8.2) g/dL Albumin (3.2-5.5) g/dL Globulin (2.1-4.2) g/dL Albumin/Globulin Ratio (1.0-2.2) Urine Color Urine Clarity (CLEAR) Urine pH (5.0-7.5) PH Ur Specific [place] (1.002-1.030) Urine Protein (NEGATIVE) mg/dL Urine Glucose (UA) (NEGATIVE) mg/dL Urine Ketones (NEGATIVE) mg/dL Urine Occult Blood (NEGATIVE) Urine Nitrite (NEGATIVE) Urine Bilirubin (NEGATIVE) Urine Urobilinogen (NORMAL) E.U./dL Ur Leukocyte Esterase (NEGATIVE) Urine RBC (0-5) /HPF Urine WBC (0-5) /HPF Ur Squamous Epith Cells (<= Few) Urine Bacteria (None Seen) /HPF Urine Culture Comments Assessment/Plan - Problem List (1) Chest pain Impression: EKG is normal. Pt is in CT right now. Hospitalist has been consulted. CBC normal CMP Qualifiers: Chest pain type: unspecified (2) Post-operative state Impression: tender uterus increasing temps with chilling
--- NOTE | 2018-04-19 18:42 | CT Report ---
Reason: Chest pain, post op Procedure Date: 04/19/2018 Accession Number: [id number] / [id number] Procedure: CT - Chest Angio (PE) CPT Code: FULL RESULT: EXAM: CT ANGIOGRAM CHEST EXAM DATE: 04/19/2018 06:26 PM. CLINICAL HISTORY: Chest pain, post operative. COMPARISON: ABDOMEN 1 VIEW 04/18/2018 12:28 AM. TECHNIQUE: Routine helical imaging was performed through the chest in the pulmonary arterial phase. IV Contrast: 80 ML OPTIRAY 320. Reconstructions: Coronal 3-D MIP reconstructions.Sagittal and coronal. In accordance with CT protocol optimization, one or more of the following dose reduction techniques were utilized for this exam: automated exposure control, adjustment of mA and/or KV based on patient size, or use of iterative reconstructive technique. FINDINGS: Mediastinum: No thoracic aneurysm or dissection. Prominent heart size. No mediastinal or hilar lymphadenopathy. No evidence for pulmonary emboli. Mild motion artifact limited. Lungs: Mild breathing motion artifact limited. No pneumothorax or pleural effusion. No consolidation are airspace disease. Small amount of free air is seen in the upper abdomen, could be due to the recent surgery. Bones: No acute bone findings. IMPRESSION: 1. No evidence for pulmonary emboli. Mild motion artifact limited. 2. Small amount of free air is seen in the upper abdomen, could be due to the recent surgery. [facility] The call report notification system was initiated by Dr. Jeannie Martino at 18:36 hrs on 04/19/18. The above findings were discussed with Dr. Gibbs by Dr. Jeannie Martino at 18:40 hrs on 04/19/18.
[2018-04-19] MEDS: AMPICILLIN/SULBACTAM 3 GM in SODIUM CHLORIDE 0.9% MINIBAG 100 ML IV SCH (19:02)
[2018-04-20] MEDS: SIMETHICONE CHEW 80 MG TABLET PO SCH ×3 (00:29→12:48)
[2018-04-20] MEDS: IBUPROFEN 600 MG TABLET PO SCH ×3 (00:56→12:47)
[2018-04-20] MEDS: AMPICILLIN/SULBACTAM 3 GM in SODIUM CHLORIDE 0.9% MINIBAG 100 ML IV SCH ×2 (00:57→06:30)
[2018-04-20] MEDS: oxyCODONE 5 MG TABLET PO PRN (04:23)
[2018-04-20] MEDS: CALCIUM CARBONATE CHEW 500 MG TABLET PO SCH ×2 (04:38→08:37)
[2018-04-20] MEDS: ACETAMINOPHEN 500 MG TABLET PO PRN (08:37)
[2018-04-20] MEDS: LABETALOL 100 MG TABLET PO SCH (08:37)
[2018-04-20] MEDS: SODIUM CHLORIDE FLUSH 0.9% 10 ML SYRINGE IVP SCH (08:38)
--- NOTE | 2018-04-20 09:21 | PROVIDER PROGRESS NOTE ---
Subjective - General Admit Date: 04/17/18 Procedure Date: 04/17/18 Post Op Days: 3 Procedure Performed: Emergent primary section - Review of Systems Wound/Incisions: positive: Healing well (Wound VAC functional), Other (Wound VAC functional) Drain Type: Almaraz catheter Drain Output Description: Clear General: positive: No symptoms, Fatigue HEENT: positive: No symptoms Pulmonary: positive: No symptoms Cardiovascular: positive: No symptoms Gastrointestinal: positive: No symptoms, Flatus Genitourinary: positive: Other (Mild lochia) Musculoskeletal: positive: No symptoms Skin: positive: No symptoms Psychiatric: positive: No symptoms, Other (Anxiety) All Other Systems: positive: Reviewed and negative - Other Other Information/Narrative: At 1600 yesterday, patient had a temperature elevation to 37.8 and was evaluated by Dr. Gibbs. Dr. Gibbs & I discussed the case this morning. Her hemoglobin is stable at 8.6 without leukocytosis. Due to the patient's increased anxiety CT scan of the chest was done that effectively ruled out PE. Hospitalist was vira led into consultation and as of yet there is no formal report from that service. Patient was presumptively given Unasyn IV piggyback. This morning patient feels well without dyspnea fevers chills or night sweats. Her pain is in control. She desires discharge if possible. Nursing is going well. Patient reports no mood disturbance other than anxiety. Objective - Patient Data Vital Signs: Vital Signs x48h Temp Pulse Resp BP Pulse Ox 04/20/18 08:30 98.2 F 77 18 161/88 H 100 04/20/18 04:11 98.3 F 78 16 129/79 100 04/20/18 01:45 70 142/91 H 100 Intake & Output: Intake and Output Totals x24h 04/18/18 04/19/18 04/20/18 23:59 23:59 23:59 Intake Total 1999 100 Output Total 2049 200 Balance -50 -100 100 - Lab Results Lab Results: 04/19/18 16:40 04/19/18 16:10 Other Lab Results: Lab Results x24hrs 04/19/18 04/19/18 04/19/18 Range/Units 16:50 16:40 16:10 WBC 10.1 (4.8-10.8) x10^3/uL RBC 3.16 L (4.20-5.40) 10^6/uL Hgb 8.8 L (12.0-16.0) g/dL Hct 27.4 L (37.0-47.0) % MCV 86.6 (81.0-99.0) fL MCH 28.0 (27.0-31.0) pg MCHC 32.3 (32.0-36.0) g/dL RDW 14.2 (12.0-15.0) % Plt Count 212 (130-450) 10^3/uL MPV 8.5 (7.9-10.8) fL Neut # (Auto) 8.1 H (1.5-6.6) 10^3/uL Lymph # (Auto) 1.3 L (1.5-3.5) 10^3/uL [place] # (Auto) 0.6 (0.0-1.0) 10^3/uL Eos # (Auto) 0.0 (0.0-0.7) 10^3/uL Baso # (Auto) 0.0 (0.0-0.1) 10^3/uL Absolute Nucleated RBC 0.00 x10^3/uL Nucleated RBC % 0.0 /100WBC Sodium 133 L (135-145) mmol/L Potassium 4.1 (3.5-5.0) mmol/L Chloride 102 (101-111) mmol/L Carbon Dioxide 26 (21-32) mmol/L Anion Gap 5.0 L (6-13) BUN 8 (6-20) mg/dL Creatinine 0.7 (0.4-1.0) mg/dL Estimated GFR (MDRD) 121 (>89) Glucose 96 (70-100) mg/dL Calcium 8.5 (8.5-10.3) mg/dL Total Bilirubin 0.2 (0.2-1.0) mg/dL AST 29 (10-42) IU/L ALT 24 (10-60) IU/L Alkaline Phosphatase 124 H (42-121) IU/L Troponin I (<0.49) ng/mL Total Protein 5.6 L (6.7-8.2) g/dL Albumin 2.5 L (3.2-5.5) g/dL Globulin 3.1 (2.1-4.2) g/dL Albumin/Globulin Ratio 0.8 L (1.0-2.2) Urine Color YELLOW Urine Clarity CLEAR (CLEAR) Urine pH 6.0 (5.0-7.5) PH Ur Specific [place] <=1.005 (1.002-1.030) Urine Protein NEGATIVE (NEGATIVE) mg/dL Urine Glucose (UA) NEGATIVE (NEGATIVE) mg/dL Urine Ketones NEGATIVE (NEGATIVE) mg/dL Urine Occult Blood NEGATIVE (NEGATIVE) Urine Nitrite NEGATIVE (NEGATIVE) Urine Bilirubin NEGATIVE (NEGATIVE) Urine Urobilinogen 0.2 (NORMAL) (NORMAL) E.U./dL Ur Leukocyte Esterase NEGATIVE (NEGATIVE) Urine RBC 0-5 (0-5) /HPF Urine WBC 0-3 (0-5) /HPF Ur Squamous Epith Cells FEW Squamous (<= Few) Urine Bacteria None Seen (None Seen) /HPF Urine Culture Comments NOT INDICATED 04/19/18 Range/Units 16:10 WBC (4.8-10.8) x10^3/uL RBC (4.20-5.40) 10^6/uL Hgb (12.0-16.0) g/dL Hct (37.0-47.0) % MCV (81.0-99.0) fL MCH (27.0-31.0) pg MCHC (32.0-36.0) g/dL RDW (12.0-15.0) % Plt Count (130-450) 10^3/uL MPV (7.9-10.8) fL Neut # (Auto) (1.5-6.6) 10^3/uL Lymph # (Auto) (1.5-3.5) 10^3/uL [place] # (Auto) (0.0-1.0) 10^3/uL Eos # (Auto) (0.0-0.7) 10^3/uL Baso # (Auto) (0.0-0.1) 10^3/uL Absolute Nucleated RBC x10^3/uL Nucleated RBC % /100WBC Sodium (135-145) mmol/L Potassium (3.5-5.0) mmol/L Chloride (101-111) mmol/L Carbon Dioxide (21-32) mmol/L Anion Gap (6-13) BUN (6-20) mg/dL Creatinine (0.4-1.0) mg/dL Estimated GFR (MDRD) (>89) Glucose (70-100) mg/dL Calcium (8.5-10.3) mg/dL Total Bilirubin (0.2-1.0) mg/dL AST (10-42) IU/L ALT (10-60) IU/L Alkaline Phosphatase (42-121) IU/L Troponin I < 0.04 (<0.49) ng/mL Total Protein (6.7-8.2) g/dL Albumin (3.2-5.5) g/dL Globulin (2.1-4.2) g/dL Albumin/Globulin Ratio (1.0-2.2) Urine Color Urine Clarity (CLEAR) Urine pH (5.0-7.5) PH Ur Specific [place] (1.002-1.030) Urine Protein (NEGATIVE) mg/dL Urine Glucose (UA) (NEGATIVE) mg/dL Urine Ketones (NEGATIVE) mg/dL Urine Occult Blood (NEGATIVE) Urine Nitrite (NEGATIVE) Urine Bilirubin (NEGATIVE) Urine Urobilinogen (NORMAL) E.U./dL Ur Leukocyte Esterase (NEGATIVE) Urine RBC (0-5) /HPF Urine WBC (0-5) /HPF Ur Squamous Epith Cells (<= Few) Urine Bacteria (None Seen) /HPF Urine Culture Comments - Current Medications Current Medications: Current Medications Generic Name Dose Route Start Last Admin Trade Name Freq PRN Reason Stop Dose Admin Acetaminophen 1,000 mg 04/17/18 18:20 04/20/18 08:37 Tylenol PO 1,000 mg Q6HR PRN Administration Pain or Fever > 38C (100.4F) Calcium Carbonate/Glycine 500 mg 04/18/18 09:00 04/20/18 08:37 Tums PO 500 mg BID ONOFRE Administration Fentanyl 50 mcg 04/17/18 01:30 04/18/18 01:26 Fentanyl IVP 50 mcg Q1H PRN Administration PAIN Lactated Ringer's 1,000 mls @ 100 mls/hr 04/17/18 02:00 04/19/18 05:39 Lr IV Not Given .Q10H ONOFRE Penicillin G Potassium 2,500, 100 mls @ 200 mls/hr 04/17/18 06:00 04/19/18 00:57 000 unit/ Sodium Chloride IV Not Given Q4H ONOFRE Oxytocin/Sodium Chloride 500 mls @ 1 mls/hr 04/17/18 23:00 04/19/18 00:54 Pitocin/Sodium Chloride IV Not Given TITR [facility] Protocol 1 MILLIUNIT/MIN Ampicillin Sodium/Sulbactam 100 mls @ 200 mls/hr 04/19/18 19:00 04/20/18 06:30 Sodium 3 gm/ Sodium Chloride IV 200 mls/hr Q6H [facility] Administration Ibuprofen 600 mg 04/18/18 12:00 04/20/18 06:30 Motrin PO 600 mg Q6HR ONOFRE Administration Labetalol HCl 100 mg 04/18/18 12:00 04/20/18 08:37 Trandate PO 100 mg BID [facility] Administration Misoprostol 50 mcg 04/17/18 05:00 04/19/18 00:57 Cytotec BC Not Given Q4HR ONOFRE Oxycodone HCl 5 mg 04/18/18 01:00 04/20/18 04:23 Roxicodone PO 5 mg Q4HR PRN Administration PAIN Simethicone 80 mg 04/18/18 06:00 04/20/18 08:37 Mylicon PO 80 mg TID ONOFRE Administration Sodium Chloride 10 ml 04/17/18 01:30 04/17/18 17:24 Normal Saline Flush 0.9% IVP 10 ml PRN PRN Administration NEEDED PER PROVIDER ORDERS Sodium Chloride 10 ml 04/18/18 01:00 04/20/18 08:38 Normal Saline Flush 0.9% IVP 10 ml 0100,[id number],1700 [facility] Administration Assessment/Plan - Assessment/Plan Assessment: Patient had a episode of temperature elevation to 37 8 just shy of 38 0. There is no remarkable tenderness of the uterus now. Postop x-ray documents no retained sponges or instruments. CT scan yesterday ruled out pulmonary embolism. Patient has no palpable breast mass but some left breast tenderness. Not believe that she has mastitis. Patient begun on Unasyn last night and we will continue cephalexin for 7 days as an outpatient. Patient being prepared for discharge Plan: Continue preparations for discharge home. Take home pack of cephalexin 500 every 6 hours given with prescription for 6 days added. Physical Exam - Physical Exam General: positive: No acute distress, Other (Baseline anxiety) HEENT: positive: Moist mucous membranes, Dentition normal Neck: positive: Supple w/out meningeal sx Cardiac: positive: Regular Rate, Murmur Present (Grade 2/6 systolic ejection murmur ; no gallop or rub) Resipratory: positive: Clear to ausultation rashmi Abdomen: positive: Normal Bowel sounds, Surgical Scars (Wound VAC functional no palpable seroma or wound disruption), Other (Abdomen is appropriate least tender post ; no flank tenderness noted) Female : positive: Normal external, Enlarged uterus (Uterus 16 weeks size firm; appropriately nontender), Other (Checked. Pad and mild lochia rubra present and no foul smell), [employer] present Extremities: positive: No pedal edema, Non tender Skin: positive: Warm and dry Neurologic: positive: Alert and Oriented X 3, Normal motor/no weakness, Normal Sensation, Normal Speech PSYCH: positive: Anxious (Baseline anxiety, no reported depression) Free text exam: Breast exam: Both breasts are full the left more so with mild tenderness. Lac tation present no masses or heat detected.
[2018-04-20] MEDS ORDERED: cephALEXin 250 MG CAPSULE PO SCH (09:49)
--- NOTE | 2018-04-20 09:59 | Discharge Plan ---
Discharge Plan Disposition: 01 Home, Self Care Condition: Stable Diet: Regular Activity Restrictions: Activity as Tolerated Shower Restrictions: No Driving Restrictions: No Weight Bearing: Full Weight No Smoking: If you smoke, Please STOP! Call for help.
[2018-04-20] MEDS ORDERED: CEPHALEXIN 250 MG Prepack 8 PO ONE ×2 (10:14→10:21)
[2018-04-20] MEDS ORDERED: CEPHALEXIN 250 MG Prepack 8 PO SCH (10:23)
[2018-04-20 12:38] VITALS: BP 133/87
--- NOTE | 2018-04-20 15:44 | Labor Flowsheet ---
Labor Flowsheet Datetime Report Generated by CPN: 04/20/2018 15:44 Datetime: 04/20/2018 12:37 VITAL SIGNS NBP Sys/Isela/Mean (mmHg): 133 : 87 : 98 Pulse: 87 LaborFlag: Labor Datetime: 04/20/2018 08:29 SpO2 (%): 100 Datetime: 04/17/2018 23:39 UTERINE ACTIVITY Monitor Mode: Internal Frequency (min): 2-6 Quality: Moderate Duration (sec): 50-70 Pattern: Normal: <= 5 Contractions in 10 Minutes Resting Tone (Palpate): Non Relaxed Contraction Comments: Unable to determine resting tone and intensity ASSESSMENT A Monitor Mode: Internal Scalp Electrode FHR Baseline Rate : 160 Variability: Moderate 6-25 bpm Accelerations: None Decelerations: Late; Variable Category: Category II Datetime: 04/17/2018 23:28 Medication Comments: Bicitra 30mL PO Datetime: 04/17/2018 23:15 Comments: 2 minute long decel at 2307 down to 90 with return to 150, then a 90sec decel down to 120 Datetime: 04/17/2018 23:12 Oxygen Amount (LPM): 10 Datetime: 04/17/2018 23:00 Respirations: 18 Anesthesia Level Check: T10- Umbilicus Datetime: 04/17/2018 22:53 Antibiotics: Penicillin IV (Units) @ 5,000,000 Datetime: 04/17/2018 22:33 Monitor Interventions for UA: IUPC Inserted Datetime: 04/17/2018 22:31 Monitor Interventions for FHR: FSE Applied Datetime: 04/17/2018 22:30 Membrane Status: Ruptured Membranes Rupture Method: Artificial Amniotic Fluid Color: Bloody Amniotic Fluid Amount: Small Amniotic Fluid Odor: Normal Cervix, Position: Anterior Oxygen Method: Room Air Datetime: 04/17/2018 22:29 VAGINAL EXAM Dilatation (cm): 3.0 Effacement (%): 70 Station: 0 Exam by: Nasrin Doe CNM Datetime: 04/17/2018 22:27 COMMUNICATION Communication: Provider at Bedside Provider Notified (Name): Nasrin Doe, CNM, SERVICES DELIVERY DRIVER Datetime: 04/17/2018 22:00 Intensity IUP (mmHg): 60-110 Datetime: 04/17/2018 21:51 Vaginal Bleeding: None Cervix, Consistency: Moderate Datetime: 04/17/2018 21:38 Communication Comments: CNM notified that HR is is having late decelerations despite maternal BP improving, position changes, and boluses; CNM aware O2 is being placed on patient; CNM ordered fo r anne to be placed now that epidural is controlling pain, patient to have a cervical check done fol lowing anne placement, and mother to be put into high-fowlers; nurse to call with results of interve ntions Datetime: 04/17/2018 20:57 PATIENT CARE IV/Blood Work: New IV Bag Hung Datetime: 04/17/2018 20:54 Patient Position/Activity: Left Lateral Datetime: 04/17/2018 20:53 Anesthesia Comments: provider made aware of patient hypotensive BP. Provider to bedside for evaluat ion. Datetime: 04/17/2018 20:25 Epidural Procedure: Completed Epidural Procedure Other: Pump Started Datetime: 04/17/2018 19:59 PROCEDURE TIME OUT Procedure Verify: Correct Patient Identity; Correct Side and Site are Marked; Agreement on Procedur e to be Done; Correct Patient Position Epidural Positioning: Sitting Datetime: 04/17/2018 19:52 ANESTHESIA Anesthesia Plans: Epidural Datetime: 04/17/2018 19:42 MEDICATIONS Analgesics/Sedatives: Tylenol (mg) @ 1000 Datetime: 04/17/2018 19:30 FHR Baseline Changes: No Baseline Change I/O Interventions: Up to BR Patient Care Comments: 50mL urine Datetime: 04/17/2018 18:15 Notification Reason: Status Update; Labor Status; Uterine Activity; Pain; Lab/Diagnostic Study Datetime: 04/17/2018 17:36 Pain Assessment Comments: patient appearing in more discomfort. Patient declines vaginal exam and s tates she is currently able to manage her pain appropriately with nitrous and frequent position soni es. Datetime: 04/17/2018 17:00 MATERNAL ASSESSMENT Level of Consciousness: Fully Conscious Headache: Temporal (Annotations: relieved with coffee) Datetime: 04/17/2018 13:32 Temperature (C): 36.7 Temperature Route: Oral Datetime: 04/17/2018 13:30 Pain Presence: Intermittent Pain Relief Measures: nitrous Datetime: 04/17/2018 13:00 PAIN Pain Scale: 5 Datetime: 04/17/2018 12:30 Pain Type: Contraction Pain Location: Abdomen Datetime: 04/17/2018 11:34 Hygiene: Oral Care; [place] Care Datetime: 04/17/2018 09:30 Breath Sounds, Left: Clear and Equal Breath Sounds, Right: Clear and Equal Nausea/Vomiting: Denies RUQ Epigastric Pain: Denies Datetime: 04/17/2018 09:20 Cervical Ripening Agents: Cytotec @ (Annotations: 50mcg Buccal) Datetime: 04/17/2018 07:58 Stage of : Labor Pain Coping: Sleeping Datetime: 04/17/2018 07:04 Pain Goal: 5 Datetime: 04/17/2018 05:30 Vital Sign Comments: pt napping Datetime: 04/17/2018 05:00 TEACHING Instructional Method: Verbal; Written; Patient Instructed; Verbalized Understanding Plan of Care: Plan of Care Discussed; Induction; Gestational Hypertension/Preeclampsia/Eclampsia Labor/Induction: Cervical Ripening; Induction Pain Management: Pain Scale/Goals; Comfort Measures
== END 2018-04-20 14:08 | disposition home or self-care (01) | DRG 786 ==
LOC: WFO 23:09 → FBP 23:09 → WFO 04-17 01:25 → FBP 04-17 01:30
PROVIDERS: ADMIT Registered Nurse; ATTEND Obstetrics & Gynecology
PROC: 3E033VJ Introduction of Other Hormone into Peripheral Vein, Percutaneous Approach (ICD-10-PCS; 2018-04-17)
PROC: 10D00Z1 Extraction of Products of Conception, Low, Open Approach (ICD-10-PCS; principal; 2018-04-18 11:50)
DX: O13.3 Gestational [pregnancy-induced] hypertension without significant proteinuria, third trimester (principal); O45.93 Premature separation of placenta, unspecified, third trimester; E87.1 Hypo-osmolality and hyponatremia; O99.824 Streptococcus B carrier state complicating childbirth; O36.8130 Decreased fetal movements, third trimester, not applicable or unspecified; Z3A.38 38 weeks gestation of pregnancy; Z37.0 Single live birth; O69.81X0 Labor and delivery complicated by cord around neck, without compression, not applicable or unspecified; D64.9 Anemia, unspecified; E87.6 Hypokalemia; O76 Abnormality in fetal heart rate and rhythm complicating labor and delivery
CPT/HCPCS: 36415; 71275; 74018; 80053; 81001; 81003; 82570; 82803; 83615; 84156; 84450; 84460; 84484; 84550; 85025; 85027; 86850; 86900; 86901; 87086; 93005; 99213

== ENCOUNTER 2018-04-23 14:16 | Inpatient (IN) | payer OTHER ==
[2018-04-23] MEDS ORDERED: LABETALOL 100 MG TABLET PO SCH (16:00)
[2018-04-23 16:21] LABS: BASOPHILS % (AUTO) 0.2 %; EOSINOPHILS # (AUTO) 0.1 10^3/uL (0.0-0.7); LYMPHOCYTES # (AUTO) 1.5 10^3/uL (1.5-3.5); LYMPHOCYTES % (AUTO) 17.8 %; MEAN CORPUSCULAR HEMOGLOBIN 28.9 pg (27.0-31.0); MEAN CORPUSCULAR HGB CONC 33.8 g/dL (32.0-36.0); MEAN CORPUSCULAR VOLUME 85.8 fL (81.0-99.0); MEAN PLATELET VOLUME 6.8 fL (7.9-10.8); MONOCYTES # (AUTO) 0.7 10^3/uL (0.0-1.0); MONOCYTES % (AUTO) 8.9 %; NEUTROPHILS # (AUTO) 5.9 10^3/uL (1.5-6.6); NEUTROPHILS % (AUTO) 72.1 %; PLT - PLATELET COUNT 360 10^3/uL (130-450); RED BLOOD COUNT 3.12 10^6/uL (4.20-5.40); RED CELL DISTRIBUTION WIDTH 14.6 % (12.0-15.0); WHITE BLOOD COUNT 8.2 x10^3/uL (4.8-10.8)
[2018-04-23] MEDS ORDERED: LACTATED RINGERS 1,000 ML IV ONE (16:21)
[2018-04-23 16:35] LABS: URIC ACID 4.9 mg/dL (2.6-7.2)
[2018-04-23 16:36] LABS: ALBUMIN/GLOBULIN RATIO 0.9 (1.0-2.2); BILIRUBIN,TOTAL 0.5 mg/dL (0.2-1.0); CALCIUM 8.9 mg/dL (8.5-10.3); CREATININE 0.6 mg/dL (0.4-1.0); TOTAL PROTEIN 6.5 g/dL (6.7-8.2)
[2018-04-23] MEDS: MAGNESIUM SULFATE 2 GRAM 2 GM/50 ML BAG IV SCH ×2 (16:47→16:48)
[2018-04-23] MEDS: ACETAMINOPHEN 500 MG TABLET PO PRN ×2 (16:47→20:39)
[2018-04-23] MEDS: MAGNESIUM SULFATE IN WATER 20 GM/500 ML IV.SOLN IV SCH (16:49)
[2018-04-23] MEDS: LACTATED RINGERS 1,000 ML IV SCH (17:06)
[2018-04-23] MEDS ORDERED: SODIUM CHLORIDE FLUSH 0.9% 10 ML SYRINGE ONE (17:20)
--- NOTE | 2018-04-23 18:55 | PREOP HISTORY & PHYSICAL ---
DATE OF SERVICE: 04/23/2018 Physician: Odell Gibbs MD IDENTIFICATION: Patient is a 27-year-old, primigravida who delivered on 04/18/2018 via for nonreassuring heart tracing. She was induced because of the preeclampsia. Her protein-creatinine ratio was 0.3. Throughout her hospitalization her blood pressures ran between 133-161 systolic over 87-105 diastolic. On discharge, she was sent home with labetalol 200 mg p.o. b.i.d. She had a , and wound VAC placed. She came in today in the office for wound VAC removal, at which time her blood pressures were noted to be in the 160/100 range. She was sent over for evaluation. This is despite being on labetalol 200 mg p.o. b.i.d. PAST MEDICAL HISTORY: Unremarkable. SURGICAL HISTORY: Positive for section x1. ALLERGIES: NONE KNOWN. CURRENT MEDICATIONS She is takin. Motrin 600 every 6 hours. 2. Oxycodone 5 mg every 4 hours. 3. Labetalol 200 mg b.i.d. 4. Colace 250 b.i.d. 5. Cephalexin 500 b.i.d. HABITS: Patient denies use of alcohol, tobacco or street or addictive drugs. PHYSICAL EXAMINATION VITAL SIGNS: On admission today, her blood pressure was 153/103, temperature was 37.1, heart rate was 81, respirations were 18. HEENT: Pupils are equal, round. Extraocular muscles are intact. NECK: Thyroid is not palpably enlarged. HEART: Regular rate and rhythm without murmurs. LUNGS: Lung kasper are clear without rales or wheezes. ABDOMEN: Soft, nontender with a well-healing Pfannenstiel incision without evidence of any erythema. Uterus is palpated roughly 1-2 fingerbreadths below the umbilicus, nontender. EXTREMITIES: DTRs are 3+, however, she does not show any clonus. IMPRESSION: Six days status post with preeclampsia. This appears to be continued at this time, despite antihypertensive. PLAN: At this point, we will obtain preeclampsia labs to include protein creatinine ratio. We will also start her on magnesium sulfate 4 grams load with 2 grams an hour. We will try and run this for 24 hours to control her blood pressures and hopefully discharge her. TD: 04/23/2018 16:56 MTDLili
[2018-04-23 19:37] LABS: CREATININE,URINE 14.8 mg/dL
[2018-04-23 19:38] LABS: TOTAL PROTEIN,URINE TIMED < 6 mg/dL
[2018-04-23] MEDS: cephALEXin 250 MG CAPSULE PO SCH (21:03)
[2018-04-23] MEDS: DOCUSATE SODIUM 250 MG CAPSULE PO SCH (21:03)
[2018-04-23] MEDS: LABETALOL 100 MG TABLET PO SCH (21:03)
[2018-04-24] MEDS: ACETAMINOPHEN 500 MG TABLET PO PRN ×5 (00:39→21:59)
[2018-04-24] MEDS: MAGNESIUM SULFATE IN WATER 20 GM/500 ML IV.SOLN IV SCH (03:57)
[2018-04-24] MEDS: LACTATED RINGERS 1,000 ML IV SCH (04:03)
[2018-04-24] MEDS: LABETALOL 100 MG TABLET PO SCH ×3 (06:05→21:19)
[2018-04-24] MEDS: cephALEXin 250 MG CAPSULE PO SCH ×2 (07:56→21:17)
[2018-04-24] MEDS: DOCUSATE SODIUM 250 MG CAPSULE PO SCH ×2 (07:57→21:16)
[2018-04-24] MEDS: PRENATAL VITAMIN TABLET PO SCH (07:57)
[2018-04-24] MEDS: oxyCODONE 5 MG TABLET PO PRN ×3 (10:56→21:18)
[2018-04-24] MEDS ORDERED: MAGNESIUM SULFATE IN WATER 20 GM/500 ML IV.SOLN IV SCH (11:15)
--- NOTE | 2018-04-24 11:17 | PROVIDER PROGRESS NOTE ---
Subjective - Prog Note Date Prog Note Date: 04/24/18 Prog Note Time: 11:15 - Subjective Pt reports feeling: Improved (Pt voiding large urine. flatus decreasing. SMITH resolved) Objective - Vital Signs/Intake & Output Reviewed Vital Signs: Yes Vital Signs: Vital Signs x48h Temp Pulse Resp BP Pulse Ox 04/24/18 11:00 89 18 97/37 L 100 04/24/18 10:30 85 18 130/81 H 100 04/24/18 09:35 89 18 117/80 100 04/24/18 09:00 83 125/84 H 100 04/24/18 08:30 85 118/76 100 04/24/18 08:00 36.4 C L 76 18 127/82 H 100 04/24/18 07:30 86 134/86 H 99 04/24/18 07:00 72 126/77 100 04/24/18 06:30 78 131/82 H 99 04/24/18 05:30 18 120/75 100 04/24/18 05:00 125/78 100 04/24/18 04:30 123/77 100 04/24/18 04:00 36.6 C 73 16 120/87 H 100 04/24/18 03:30 132/81 H 100 Intake & Output: Intake & Output 04/21/18 04/22/18 04/23/18 04/24/18 23:59 23:59 23:59 23:59 Intake Total 2.5 1321.25 Output Total 1950 2049 Balance -1947.5 -728.75 - Objective General Appearance: positive: No acute distress, Alert Respiratory: positive: Chest non-tender, No respiratory distress, Breath sounds nml Cardiovascular: positive: Regular rate & rhythm, No murmur, No gallop Abdomen: positive: Non-tender, Nml bowel sounds Extremities: negative: Calf tenderness, Sarah's sign/cords Reflexes: Knee (R): 2+, Knee (L): 2+ (no clonus) - Lab Results Fish Bones: 04/23/18 16:13 04/23/18 16:13 Other Labs: Lab Results x24hrs 04/23/18 04/23/18 04/23/18 Range/Units 18:30 16:13 16:13 WBC (4.8-10.8) x10^3/uL RBC (4.20-5.40) 10^6/uL Hgb (12.0-16.0) g/dL Hct (37.0-47.0) % MCV (81.0-99.0) fL MCH (27.0-31.0) pg MCHC (32.0-36.0) g/dL RDW (12.0-15.0) % Plt Count (130-450) 10^3/uL MPV (7.9-10.8) fL Neut # (Auto) (1.5-6.6) 10^3/uL Lymph # (Auto) (1.5-3.5) 10^3/uL [place] # (Auto) (0.0-1.0) 10^3/uL Eos # (Auto) (0.0-0.7) 10^3/uL Baso # (Auto) (0.0-0.1) 10^3/uL Absolute Nucleated RBC x10^3/uL Nucleated RBC % /100WBC Fibrinogen 505 H (220-496) mg/dL Sodium 139 (135-145) mmol/L Potassium 3.8 (3.5-5.0) mmol/L Chloride 104 (101-111) mmol/L Carbon Dioxide 26 (21-32) mmol/L Anion Gap 9.0 (6-13) BUN 8 (6-20) mg/dL Creatinine 0.6 (0.4-1.0) mg/dL Estimated GFR (MDRD) 144 (>89) Glucose 89 (70-100) mg/dL Uric Acid (2.6-7.2) mg/dL Calcium 8.9 (8.5-10.3) mg/dL Total Bilirubin 0.5 (0.2-1.0) mg/dL AST 45 H (10-42) IU/L ALT 31 (10-60) IU/L Alkaline Phosphatase 113 (42-121) IU/L Lactate Dehydrogenase (91-225) IU/L Total Protein 6.5 L (6.7-8.2) g/dL Albumin 3.0 L (3.2-5.5) g/dL Globulin 3.5 (2.1-4.2) g/dL Albumin/Globulin Ratio 0.9 L (1.0-2.2) Urine Creatinine 14.8 mg/dL Ur Total Protein Timed < 6 mg/dL Protein/Creatinin Ratio Not Reportable 04/23/18 04/23/18 04/23/18 Range/Units 16:13 16:13 16:13 WBC 8.2 (4.8-10.8) x10^3/uL RBC 3.12 L (4.20-5.40) 10^6/uL Hgb 9.0 L (12.0-16.0) g/dL Hct 26.7 L (37.0-47.0) % MCV 85.8 (81.0-99.0) fL MCH 28.9 (27.0-31.0) pg MCHC 33.8 (32.0-36.0) g/dL RDW 14.6 (12.0-15.0) % Plt Count 360 (130-450) 10^3/uL MPV 6.8 L (7.9-10.8) fL Neut # (Auto) 5.9 (1.5-6.6) 10^3/uL Lymph # (Auto) 1.5 (1.5-3.5) 10^3/uL [place] # (Auto) 0.7 (0.0-1.0) 10^3/uL Eos # (Auto) 0.1 (0.0-0.7) 10^3/uL Baso # (Auto) 0.0 (0.0-0.1) 10^3/uL Absolute Nucleated RBC 0.01 x10^3/uL Nucleated RBC % 0.1 /100WBC Fibrinogen (220-496) mg/dL Sodium (135-145) mmol/L Potassium (3.5-5.0) mmol/L Chloride (101-111) mmol/L Carbon Dioxide (21-32) mmol/L Anion Gap (6-13) BUN (6-20) mg/dL Creatinine (0.4-1.0) mg/dL Estimated GFR (MDRD) (>89) Glucose (70-100) mg/dL Uric Acid 4.9 (2.6-7.2) mg/dL Calcium (8.5-10.3) mg/dL Total Bilirubin (0.2-1.0) mg/dL AST 45 H (10-42) IU/L ALT (10-60) IU/L Alkaline Phosphatase (42-121) IU/L Lactate Dehydrogenase 247 H (91-225) IU/L Total Protein (6.7-8.2) g/dL Albumin (3.2-5.5) g/dL Globulin (2.1-4.2) g/dL Albumin/Globulin Ratio (1.0-2.2) Urine Creatinine mg/dL Ur Total Protein Timed mg/dL Protein/Creatinin Ratio Assessment/Plan - Problem List (1) Preeclampsia Impression: Pt is responding to magnesium BP well controlled Taper Magnesium reduce Labetolol
[2018-04-24] MEDS ORDERED: SODIUM CHLORIDE FLUSH 0.9% 10 ML SYRINGE ONE ×2 (15:55→22:01)
[2018-04-24] MEDS ORDERED: LABETALOL 100 MG TABLET PO SCH (21:00)
[2018-04-24] MEDS: SODIUM CHLORIDE FLUSH 0.9% 10 ML SYRINGE IVP PRN (22:02)
[2018-04-25] MEDS: oxyCODONE 5 MG TABLET PO PRN ×2 (03:57→07:46)
[2018-04-25] MEDS: ACETAMINOPHEN 500 MG TABLET PO PRN ×2 (03:57→07:46)
[2018-04-25] MEDS: LABETALOL 100 MG TABLET PO SCH (04:00)
[2018-04-25] MEDS: PRENATAL VITAMIN TABLET PO SCH (07:46)
[2018-04-25] MEDS: SODIUM CHLORIDE FLUSH 0.9% 10 ML SYRINGE IVP PRN (07:46)
[2018-04-25] MEDS: DOCUSATE SODIUM 250 MG CAPSULE PO SCH (07:46)
[2018-04-25] MEDS: cephALEXin 250 MG CAPSULE PO SCH (07:47)
--- NOTE | 2018-04-25 10:52 | PROVIDER PROGRESS NOTE ---
Subjective - Prog Note Date Prog Note Date: 04/25/18 Prog Note Time: 10:47 - Subjective Pt reports feeling: Improved (feels well at this time. No head ach.) Objective - Vital Signs/Intake & Output Reviewed Vital Signs: Yes Vital Signs: Vital Signs x48h Temp Pulse Resp BP Pulse Ox 04/25/18 08:00 36.8 C 79 16 146/83 H 04/25/18 05:34 36.8 C 71 16 141/92 H 98 04/25/18 03:55 18 150/80 H 04/25/18 03:45 150/90 H Intake & Output: Intake & Output 04/22/18 04/23/18 04/24/18 04/25/18 23:59 23:59 23:59 23:59 Intake Total 2.5 2725.00 Output Total 1950 3875 Balance -1947.5 -1150.00 - Objective General Appearance: positive: No acute distress, Alert Respiratory: positive: Chest non-tender, No respiratory distress, Breath sounds nml Cardiovascular: positive: Regular rate & rhythm, No murmur, No gallop Abdomen: positive: Non-tender, Nml bowel sounds, Mass (u-2) Extremities: negative: Calf tenderness, Sarah's sign/cords Neurologic/Psychiatric: positive: Oriented x3 - Lab Results Fish Bones: 04/23/18 16:13 04/23/18 16:13 Assessment/Plan - Problem List (1) Preeclampsia Impression: Blood pressure small rrebourn when Magnesium Sulfate stopped. Labetolol increased to 200 mg twice daily. Discharge medication Labetolol 200mg bid Blood pressure cuff for home monitoring. RTC for BP check. call if BP remains over 150/95.
--- NOTE | 2018-04-25 10:53 | Discharge Plan ---
Discharge Plan Disposition: 01 Home, Self Care Condition: Good Diet: Regular Activity Restrictions: No Restrictions Shower Restrictions: No Driving Restrictions: No No Smoking: If you smoke, Please STOP! Call for help.
[2018-04-25 13:15] VITALS: BP 137/89
== END 2018-04-25 12:30 | disposition home or self-care (01) | DRG 776 ==
LOC: WFO 14:16 → FBP 14:17 → WFO 15:55 → FBP 15:56
PROVIDERS: ADMIT Obstetrics & Gynecology; ATTEND Obstetrics & Gynecology
DX: O14.95 Unspecified pre-eclampsia, complicating the puerperium (principal); Z79.899 Other long term (current) drug therapy
CPT/HCPCS: 36415; 80053; 82570; 83615; 84156; 84450; 84550; 85025; 85384

== ENCOUNTER 2018-04-29 11:56 | Outpatient (CLI) | payer OTHER ==
[2018-04-29 12:49] LABS: BASOPHILS % (AUTO) 0.5 %; EOSINOPHILS # (AUTO) 0.1 10^3/uL (0.0-0.7); EOSINOPHILS % (AUTO) 0.6 %; LYMPHOCYTES # (AUTO) 1.5 10^3/uL (1.5-3.5); LYMPHOCYTES % (AUTO) 17.2 %; MEAN CORPUSCULAR HEMOGLOBIN 28.4 pg (27.0-31.0); MEAN CORPUSCULAR HGB CONC 33.1 g/dL (32.0-36.0); MEAN CORPUSCULAR VOLUME 85.9 fL (81.0-99.0); MEAN PLATELET VOLUME 6.6 fL (7.9-10.8); MONOCYTES # (AUTO) 0.5 10^3/uL (0.0-1.0); MONOCYTES % (AUTO) 6.3 %; NEUTROPHILS # (AUTO) 6.5 10^3/uL (1.5-6.6); NEUTROPHILS % (AUTO) 75.4 %; PLT - PLATELET COUNT 470 10^3/uL (130-450); RED CELL DISTRIBUTION WIDTH 14.6 % (12.0-15.0); WHITE BLOOD COUNT 8.6 x10^3/uL (4.8-10.8)
[2018-04-29 13:02] LABS: CREATININE,URINE 70.7 mg/dL; PROTEIN/CREATININE RATIO,URINE 0.1 (<=0.2)
[2018-04-29 13:03] LABS: ALBUMIN 3.6 g/dL (3.2-5.5); BILIRUBIN,TOTAL 0.5 mg/dL (0.2-1.0); CALCIUM 9.1 mg/dL (8.5-10.3); CREATININE 0.6 mg/dL (0.4-1.0); TOTAL PROTEIN 7.2 g/dL (6.7-8.2)
[2018-04-29 13:20] LABS: URIC ACID 4.9 mg/dL (2.6-7.2)
[2018-04-29 14:45] VITALS: BP 167/100
[2018-04-29] MEDS ORDERED: LABETALOL 100 MG TABLET PO SCH ×2 (14:45→21:00)
--- NOTE | 2018-04-29 14:50 | PROVIDER PROGRESS NOTE ---
Subjective - Prog Note Date Prog Note Date: 04/29/18 Prog Note Time: 15:00 - Subjective Pt reports feeling: No change Subjective: Mrs. Nathalie Quick is a 27-year-old -[place] primiparous patient status post emergent for abruption and GHTN. She recovered normally but required labetalol and was discharged on 200 labetalol p.o. D on 20 April. On her 1 week wound check, she was found to be markedly hypertensive and was admitted by Dr. Gibbs for magnesium sulfate drip. Her blood pressure stabilized and she was discharged home on labetalol 200 twice daily. On today's 2-week check she was noted to be markedly hypertensive 156/105. Subsequently she was sent to the hospital for evaluation. She reports no headaches, visual disturbance, right upper quadrant pain or edema. In fact she notes her edema has markedly improved since discharge. She reports no mood disturbance. She has lost sleep over the last 3 days. She reports no fevers chills recent illnesses or UTI symptoms. Her lochia is mild rubra. She is nursing well. Objective - Vital Signs/Intake & Output Vital Signs: Vital Signs x48h Temp Pulse Resp BP Pulse Ox 04/29/18 12:35 74 157/99 H 04/29/18 12:34 98.6 F 112 H 16 153/112 H 100 - Lab Results Fish Bones: 04/29/18 12:40 04/29/18 12:40 Other Labs: Lab Results x24hrs 04/29/18 04/29/18 04/29/18 Range/Units 12:40 12:40 12:40 WBC 8.6 (4.8-10.8) x10^3/uL RBC 3.50 L (4.20-5.40) 10^6/uL Hgb 10.0 L (12.0-16.0) g/dL Hct 30.1 L (37.0-47.0) % MCV 85.9 (81.0-99.0) fL MCH 28.4 (27.0-31.0) pg MCHC 33.1 (32.0-36.0) g/dL RDW 14.6 (12.0-15.0) % Plt Count 470 H (130-450) 10^3/uL MPV 6.6 L (7.9-10.8) fL Neut # (Auto) 6.5 (1.5-6.6) 10^3/uL Lymph # (Auto) 1.5 (1.5-3.5) 10^3/uL [place] # (Auto) 0.5 (0.0-1.0) 10^3/uL Eos # (Auto) 0.1 (0.0-0.7) 10^3/uL Baso # (Auto) 0.0 (0.0-0.1) 10^3/uL Absolute Nucleated RBC 0.00 x10^3/uL Nucleated RBC % 0.0 /100WBC Sodium 138 (135-145) mmol/L Potassium 3.7 (3.5-5.0) mmol/L Chloride 104 (101-111) mmol/L Carbon Dioxide 24 (21-32) mmol/L Anion Gap 10.0 (6-13) BUN 13 (6-20) mg/dL Creatinine 0.6 (0.4-1.0) mg/dL Estimated GFR (MDRD) 144 (>89) Glucose 101 H (70-100) mg/dL Uric Acid 4.9 (2.6-7.2) mg/dL Calcium 9.1 (8.5-10.3) mg/dL Total Bilirubin 0.5 (0.2-1.0) mg/dL AST 31 32 (10-42) IU/L ALT 21 (10-60) IU/L Alkaline Phosphatase 103 (42-121) IU/L Lactate Dehydrogenase (91-225) IU/L Total Protein 7.2 (6.7-8.2) g/dL Albumin 3.6 (3.2-5.5) g/dL Globulin 3.6 (2.1-4.2) g/dL Albumin/Globulin Ratio 1.0 (1.0-2.2) Urine Creatinine mg/dL Ur Total Protein Timed mg/dL Protein/Creatinin Ratio (<=0.2) 04/29/18 04/29/18 Range/Units 12:40 12:30 WBC (4.8-10.8) x10^3/uL RBC (4.20-5.40) 10^6/uL Hgb (12.0-16.0) g/dL Hct (37.0-47.0) % MCV (81.0-99.0) fL MCH (27.0-31.0) pg MCHC (32.0-36.0) g/dL RDW (12.0-15.0) % Plt Count (130-450) 10^3/uL MPV (7.9-10.8) fL Neut # (Auto) (1.5-6.6) 10^3/uL Lymph # (Auto) (1.5-3.5) 10^3/uL [place] # (Auto) (0.0-1.0) 10^3/uL Eos # (Auto) (0.0-0.7) 10^3/uL Baso # (Auto) (0.0-0.1) 10^3/uL Absolute Nucleated RBC x10^3/uL Nucleated RBC % /100WBC Sodium (135-145) mmol/L Potassium (3.5-5.0) mmol/L Chloride (101-111) mmol/L Carbon Dioxide (21-32) mmol/L Anion Gap (6-13) BUN (6-20) mg/dL Creatinine (0.4-1.0) mg/dL Estimated GFR (MDRD) (>89) Glucose (70-100) mg/dL Uric Acid (2.6-7.2) mg/dL Calcium (8.5-10.3) mg/dL Total Bilirubin (0.2-1.0) mg/dL AST (10-42) IU/L ALT (10-60) IU/L Alkaline Phosphatase (42-121) IU/L Lactate Dehydrogenase 263 H (91-225) IU/L Total Protein (6.7-8.2) g/dL Albumin (3.2-5.5) g/dL Globulin (2.1-4.2) g/dL Albumin/Globulin Ratio (1.0-2.2) Urine Creatinine 70.7 mg/dL Ur Total Protein Timed 8 mg/dL Protein/Creatinin Ratio 0.1 (<=0.2) Physical Exam - Physical Exam General: positive: No acute distress, Alert HEENT: positive: Moist mucous membranes Neck: positive: Supple w/out meningeal sx, Thyroid normal Cardiac: positive: Regular Rate, Regular Rhythm Resipratory: positive: Clear to ausultation rashmi Abdomen: positive: Other (No organomegaly or right upper quadrant tenderness) Female : positive: Enlarged uterus (14-15 weeks size uterus; nontender) Extremities: positive: Normal ROM, No pedal edema, Non tender Skin: positive: Warm and dry Neurologic: positive: Alert and Oriented X 3, Normal motor/no weakness, Normal Sensation, Normal Speech Assessment/Plan - Assessment/Plan Assessment: Patient has history of gestational hypertension with abruption and emergent section. As expected her hypertension persists but is difficult to control on present dose labetalol. She is currently taking Motrin for baseline pain control but will soon stop this. She does not have symptoms consistent with preeclampsia. But her blood pressures remain labile with recent value of 167/100. There is no proteinuria. LDH remains slightly elevated but this could be secondary to labetalol side effect. Creatinine and uric acid do not indicate renal failure. Cardiac exam does not show failure and there are no symptoms of a cardiac event. The main objective is adequate blood pressure control to reduce CVA risk. Plan: 1. Labetalol provides a balanced diet antihypertensive and the current dose to his not been maximized. Will increase dose to 300 twice daily. 2.. Will discontinue ibuprofen 3. Will have a recheck of blood pressure on Thursday in labor and delivery. At that time she will bring her home blood pressure machine to ensure it correlates well with manually performed readings.. 4. Patient instructed if she develops preeclamptic's symptoms such as headache visual changes right upper quadrant tenderness or edema that she should return to labor and delivery for evaluation. Importance of medication compliance was emphasized.
--- NOTE | 2018-04-29 15:22 | Labor Flowsheet ---
Labor Flowsheet Datetime Report Generated by CPN: 04/29/2018 15:22 Datetime: 04/29/2018 13:30 VITAL SIGNS NBP Sys/Isela/Mean (mmHg): 157 : 99 : 112 Pulse: 71 COMMUNICATION LaborFlag: Labor
== END 2018-04-29 15:15 | disposition home or self-care (01) ==
LOC: WFO 11:56 → FBP 11:56 → WFO 15:15
PROVIDERS: ATTEND Obstetrics & Gynecology
DX: O13.5 Gestational [pregnancy-induced] hypertension without significant proteinuria, complicating the puerperium (principal)
CPT/HCPCS: 36415; 80053; 82570; 83615; 84156; 84450; 84550; 85025; 99211; A9270; 99213

== ENCOUNTER 2018-05-07 13:53 | Outpatient (CLI) | payer OTHER ==
[2018-05-07 14:30] LABS: CREATININE 0.7 mg/dL (0.4-1.0); URIC ACID 5.2 mg/dL (2.6-7.2)
[2018-05-07 15:15] LABS: BILIRUBIN,URINE NEGATIVE (NEGATIVE); CLARITY,URINE CLEAR (CLEAR); GLUCOSE, URINE (UA) NEGATIVE (NEGATIVE); KETONES,URINE (UA) NEGATIVE (NEGATIVE); LEUKOCYTE ESTERASE, URINE NEGATIVE (NEGATIVE); NITRITE,URINE NEGATIVE (NEGATIVE); OCCULT BLOOD,URINE LARGE (NEGATIVE); PROTEIN,URINE NEGATIVE (NEGATIVE); UROBILINOGEN,URINE 0.2 (NORMAL) E.U./dL (NORMAL)
[2018-05-07 15:24] LABS: BACTERIA,URINE None Seen /HPF (None Seen); SQUAMOUS EPITHELIAL CELL,UR NONE SEEN (<= Few)
== END 2018-05-07 13:54 | disposition home or self-care (01) ==
LOC: LAB 13:53
PROVIDERS: ATTEND Obstetrics & Gynecology
DX: I10 Essential (primary) hypertension (principal)
CPT/HCPCS: 36415; 81001; 81003; 82565; 83615; 84450; 84550; 87086

== ENCOUNTER 2018-05-13 12:45 | Outpatient (CLI) | payer OTHER | END 2018-05-13 12:46 | disposition home or self-care (01) | LOC: RT 12:45 → DI 12:46 | PROVIDERS: ATTEND Obstetrics & Gynecology | DX: I10 Essential (primary) hypertension (principal); R01.1 Cardiac murmur, unspecified | CPT/HCPCS: 93005; 93306 ==